=== PATIENT | male | born 1940 | race Caucasian/White ===

== ENCOUNTER 2019-09-14 12:11 | Inpatient (IN) | payer OTHER ==
[~2019-09-14] VITALS: Ht 182.9 cm; Wt 105.2 kg
[2019-09-14 12:11] VITALS: BP 160/84
[2019-09-14] MEDS ORDERED: SIMVASTATIN80 MG PO (12:29)
[2019-09-14] MEDS ORDERED: ZESTORETIC 20-1 EACH PO (12:30)
[2019-09-14] MEDS ORDERED: OMEPRAZOLE40 MG PO (12:30)
[2019-09-14] MEDS ORDERED: FENOFIBRATE160 MG PO (12:31)
[2019-09-14] MEDS ORDERED: METFORMIN HCL500 M3 PO (12:31)
[2019-09-14] MEDS ORDERED: ONE-A-DAY WOMENS PO (12:32)
[2019-09-14] MEDS ORDERED: ASA81BEC PO (12:32)
[2019-09-14 12:41] LABS: BASOPHILS 0.8 % (0.0-2.0); HEMATOCRIT 41.1 % (42.0-52.0); HEMOGLOBIN 13.8 gm/dL (14.0-18.0); LYMPHOCYTES 26.4 % (24.0-44.0); MCH 30.1 pg (26.0-34.0); MCHC 33.6 g/dL (28.0-37.0); MCV 89.7 fL (80.0-100.0); PLATELET COUNT 215 thou/uL (150-400); POLYS 49.8 % (36.0-66.0); RBC 4.58 mil/uL (4.50-6.00)
[2019-09-14 12:51] LABS: ANION GAP 9 mmol/L (7-16); BUN 23 mg/dL (7-18); CALCIUM 9.4 mg/dL (8.5-10.1); CHLORIDE 99 mmol/L (98-107); CO2 26 mmol/L (21-32); CREATININE 1.3 mg/dL (0.7-1.3); GLUCOSE 122 mg/dL (74-106); POTASSIUM 4.1 mmol/L (3.5-5.1); SODIUM 134 mmol/L (136-145)
[2019-09-14 13:00] LABS: SGOT 34 U/L (15-37); SGPT 26 U/L (30-65); TOTAL BILIRUBIN 0.4 mg/dL (<0.1-1.0); TOTAL PROTEIN 8.2 g/dL (6.4-8.2); TROPONIN-I <0.06 ng/mL (<0.06)
[2019-09-14 14:49] VITALS: BP 147/59
[2019-09-14 16:04] VITALS: BP 144/70
[2019-09-14 20:22] VITALS: BP 156/66
--- NOTE | 2019-09-14 20:36 | NUR ---
pt admitted from ER for SOB , pt is A&OX3, PT'S VS are stable, pt has done iv ABX at ER, lasix 40mg iv giving, pt is on o2 2L/MIN/NC to keep o2sat at 92-95% pt has SOB with activities. pt's family stay at pt's bedside.
[2019-09-14 23:05] LABS: GLYCOHEMOGLOBIN (HGB A1C) 6.7 % (4.8-5.6)
[2019-09-14 23:18] VITALS: BP 136/78
[2019-09-15 04:08] VITALS: BP 163/77
[2019-09-15 06:04] LABS: HEMATOCRIT 41.5 % (42.0-52.0); HEMOGLOBIN 13.7 gm/dL (14.0-18.0); MCV 90.9 fL (80.0-100.0); RBC 4.56 mil/uL (4.50-6.00); RDW 14.2 % (10.5-14.5); WBC 7.8 thou/uL (4.0-11.0)
[2019-09-15 06:19] LABS: CALCIUM 9.5 mg/dL (8.5-10.1); CREATININE 1.2 mg/dL (0.7-1.3); POTASSIUM 3.8 mmol/L (3.5-5.1)
--- NOTE | 2019-09-15 07:04 | NUR ---
SLEPT MOST OF SHIFT. DANGLES TO VOID WITHOUT PROBLEMS. DENIES COMPLAINTS OF PAIN THIS SHIFT. REMAINS WITH SHORTNESS OF AIR WITH ACTIVITY. WORKING ON GOALS AND PLAN OF CARE FOR NOC. PROGRESSING SLOWLY TOWARDS DISCHARGE GOALS. CONTINUE TO ASSES CLOSELY.
[2019-09-15 07:52] VITALS: BP 148/80
--- NOTE | 2019-09-15 11:24 | EKG ---
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
[2019-09-15 15:52] VITALS: BP 143/78
--- NOTE | 2019-09-15 18:34 | NUR ---
PATIENT ALERT AND ORIENTED X4, NO COMPLAINTS OF PAIN. ON 2L NASAL CANULA, DESATS TO 89% WHEN ON ROOM AIR. PATIENT EDUCATED ON INCREASED ACTIVITY. AMBULATED INDEPENDENTLY IN THE ROOM. PATIENT ALSO EDUCATED ON INSENTIVE SPIROMITRY AND COMPLETES EVERY HOUR. PLAN IS TO WEAN OF OXYGEN. NO SIGN OF ACUTE DISTRESS NOTED AT THIS TIME. WILL CONTINUE TO MONITOR.
[2019-09-15 19:09] VITALS: BP 132/78
[2019-09-16 05:56] VITALS: BP 125/73
[2019-09-16 05:57] LABS: CALCIUM 9.6 mg/dL (8.5-10.1); CREATININE 1.3 mg/dL (0.7-1.3); POTASSIUM 4.2 mmol/L (3.5-5.1)
--- NOTE | 2019-09-16 06:00 | NUR ---
RESTING QUIETLY TONIGHT. HE HAS BEEN GETTING UP AND DUMPING URINE IN THE TIOLET. HE GAVE ME AN ESTIMATE OF THE AMOUNT OF URINE OUT WITH EACH URINATION AND HOW MANY TIMES. CAREPLAN REVIWED.
[2019-09-16 08:25] VITALS: BP 122/57
--- NOTE | 2019-09-16 08:58 | 2DMMODE ---
[facility] [place] [address] 2 D/M-MODE ECHOCARDIOGRAM Name: BALDERASHUA Room #: 364-P ADM IN M.R.#: [id number] Admission: 09/14/19 Attend Phys: Meghna Nguyen MD Discharge: Date of : 39 Report #: [id number] THIS REPORT FOR: //name// APPROVED REPORT Study performed: 09/16/2019 09:19:45 EXAM: Comprehensive 2D, Doppler, and color-flow Echocardiogram Patient Location: Echo lab Room #: 364 Status: routine BSA: 2.30 HR: 64 bpm BP: 125/73 mmHg Rhythm: NSR Other Information Study Quality: Adequate Indications Dyspnea Hx: CAD, stent, HTN. 2D Dimensions RVDd: 43.56 mm IVSd: 13.20 (7-11mm) LVOT Diam: 23.16 (18-24mm) LVDd: 46.76 mm PWd: 8.99 (7-11mm) Ascending Ao: 34.39 (22-36mm) LVDs: 32.00 (25-40mm) Aortic Root: 38.09 mm Volumes Left Atrial Volume (Systole) Single Plane 4CH: 46.64 mL Single Plane 2CH: 43.85 mL LA ESV Index: 21.00 mL/m2 Aortic Valve AoV Peak Arthur.: 1.15 m/s AO Peak Gr.: 5.32 mmHg LVOT Max P.95 mmHg LVOT Max V: 0.99 m/s YU Vmax: 3.63 cm2 Mitral Valve E/A Ratio: 0.8 MV Decel. Time: 434.00 ms [facility] [address] [address] 2 D/M-MODE ECHOCARDIOGRAM Name: HUA BALDERAS Room #: 364-P [facility]#: [id number] Admission: 09/14/19 Attend Phys: Meghna Nguyen MD Discharge: Date of : 39 Report #: [id number] MV E Max Arthur.: 0.50 m/s MV A Arthur.: 0.65 m/s MV PHT: 125.86 ms IVRT: 101.50 ms Pulmonary Valve PV Peak Arthur.: 0.88 m/s PV Peak Gr.: 3.07 mmHg Pulmonary Vein P Vein S: 0.44 m/s P Vein A: 0.29 m/s P Vein D: 0.43 m/s P Vein A Dur.: 115.3 msec P Vein S/D Ratio: 1.02 Tricuspid Valve TR Peak Arthur.: 2.70 m/s RAP Estimate: 5.00 mmHg TR Peak Gr.: 29.00 mmHg PA Pressure: 34.00 mmHg Left Ventricle The left ventricle is normal size. There is normal LV segmental wall motion. There is normal left ventricular wall thickness. The left ventricular systolic function is normal. The left ventricular ejection fraction is within the normal range. LVEF is 60%. Mild diastolic dysfunction is present (impaired relaxation pattern). Right Ventricle The right ventricle is normal size. The right ventricular systolic function is normal. Atria The left atrium size is normal. The right atrium size is normal. Aortic Valve The aortic valve is minimally calcified. No aortic regurgitation is present. There is no aortic valvular stenosis. Mitral Valve The mitral valve is normal in structure. Mild mitral regurgitation. Eccentric jet. Tricuspid Valve The tricuspid valve is normal in structure. Trace tricuspid regurgitation. Estimated PAP is 35mmHg. [facility] [address] [place] [address] 2 D/M-MODE ECHOCARDIOGRAM Name: HUA BALDERAS Room #: 364-P [facility] IN M.R.#: [id number] Admission: 09/14/19 Attend Phys: Meghna Nguyen MD Discharge: Date of : 38 Report #: [id number] Pulmonic Valve The pulmonary valve is normal in structure. Trace pulmonic regurgitation. Great Vessels The aortic root measures at the upper limits of normal. The ascending aorta is normal in size. IVC is normal in size and collapses >50% with inspiration. Pericardium There is no pericardial effusion. <Conclusion> Left ventricular systolic function is normal. There is normal LV segmental wall motion. EF 60% Mild diastolic dysfunction The aortic valve is minimally calcified. No aortic regurgitation or stenosis. The mitral valve is normal in structure. Mild mitral regurgitation. Eccentric jet. Trace tricuspid regurgitation. Estimated pulmonary artery pressure of 35mmHg. There is no pericardial effusion. <ELECTRONICALLY SIGNED> By: Danis Valadez MD, FACC 09/16/19857 7 7 Danis Valadez MD, FACC /INF
--- NOTE | 2019-09-16 14:51 | NUR ---
DISCHARGE PLANNING. PATIENT DISCHARGING TO HOME. PATIENT WILL NEED OXYGEN SET UP FOR HOME USE. PATIENT REFERRAL FAXED TO [facility] PER REQUEST. CALL PLACED TO [facility] TO NOTIFY OF REFERRAL AND PATIENTS OXYGEN NEEDS. [facility] TO FACILITATE AND WILL DELIVER PORTABLE TANK TO PATIENT BESIDE PRIOR TO DISCHARGE. UNIT SW NOTIFIED.
--- NOTE | 2019-09-16 15:55 | NUR ---
Assumed care approx. 0700 this AM. No acute changes, no distress. Patient hopeful for discharge orders today. Oxygen with activity test completed with RT. Pt will be going home with O2. Dr. Burton decided to keep patient one more night. Lasix order changed to 40 mg IV. O2 tank has arrived to patient room to go home home with patient at discharge. Patient progressing toward plan of care goals.
--- NOTE | 2019-09-16 16:28 | NUR ---
INITIAL ASSESSMENT: SW REVIEWED CHART AND SPOKE WITH NURSING AND ATTENDING PHYSICIAN. PT WAS ADMITTED FROM HOME DUE TO PNEUMONIA. PT ON CONTINUOUS O2 AND WILL NEED AT TIME OF DISCHARGE. PT WILL DISCHARGE HOME TOMORROW. SW MET WITH PT AND FAMILY AT BEDSIDE. INTRODUCED ROLE OF SW. PT IS ALERT/ORIENTATED X 4. PRIOR TO ADMISSION, PT WAS INDEPENDENT WITH ADLS. NO USE OF DME. NO HX OF HH SERVICES OR POST-ACUTE PLACEMENT. PT VERBALIZED UNDERSTANDING OF NEED FOR HOME O2. PT NEEDS 2L AT REST AND 4L WITH ACTIVITY. PT'S PCP IS DR. WINSOME SHANKS. SW2 DISCUSSED OPTIONS FOR DME PROVIDERS. NO PREFERENCE VOICED. SW CONFIRMED PT'S HOME ADDRESS AND PHONE NUMBER. COOK NIGHT SENT INFO TO [facility]. [facility] DELIVERED PORTABLE TANK TO BEDSIDE AND CAN PROVIDE CARE. CONTACT INTO FOR [facility] PLACED IN PT'S DISCHARGE SUMMARY. SW UPDATED PT'S NURSE AND ATTENDING PHYSICIAN. SW IS FOLLOWING TO ASSIST NEEDED WITH DISCHARGE PLANNING.
[2019-09-16 16:31] VITALS: BP 122/57
[2019-09-16 17:50] VITALS: BP 110/54
[2019-09-16 20:45] VITALS: BP 121/59
--- NOTE | 2019-09-17 04:21 | NUR ---
resting quietly tonight. denies pain. he is expecting to go home tomorrow. he is wanting to know if it is permissable to drink a small amount of coffee each day on the heart healthy diet.
[2019-09-17 04:49] VITALS: BP 131/64
[2019-09-17 08:06] VITALS: BP 108/67
[2019-09-17] MEDS ORDERED: LASIX 40 MG TAB40 MG PO (08:24)
[2019-09-17] MEDS ORDERED: LISINOPRIL20 MG PO (08:24)
[2019-09-17] MEDS ORDERED: AZITHROMYCIN500 MG PO (08:24)
[2019-09-17 09:23] VITALS: BP 108/67
--- NOTE | 2019-09-17 13:06 | NUR ---
DISCHARGE NOTE: PAUL reviewed chart and spoke with nursing and attending physician. Pt is medically stable for discharge home today. Orders written for home O2 and HH. PAUL met with pt and family at bedside to discuss discharge. Portable O2 tank at bedside, which was delivered by [facility] liaison yesterday afternoon. PAUL provided options for HH agencies. No preference voiced. PAUL confirmed pt's home address and phone number. Pt's PCP is Dr. Clarissa Li. PAUL [facility] not in-network with pt's insurance. PAUL faxed referral to [facility] and notified [facility] liaison of new referral. Contact info for [facility] placed in pt's discharge summary. PAUL is following to finalize discharge.
== END 2019-09-17 11:37 | disposition home health service (06) | DRG 193 ==
LOC: ER 12:11 → 3W 13:54 → EROBS 13:54 → 3W 15:50 → ENTRNSPT 09-17 10:48 → EDTRNSPTSTS 09-17 11:10 → 3W 09-17 11:37
PROVIDERS: Nurse Practitioner Family; ADMIT Internal Medicine
DX: J18.9 Pneumonia, unspecified organism (principal); J96.91 Respiratory failure, unspecified with hypoxia; I50.30 Unspecified diastolic (congestive) heart failure; I25.10 Atherosclerotic heart disease of native coronary artery without angina pectoris; E78.5 Hyperlipidemia, unspecified; E11.9 Type 2 diabetes mellitus without complications; I11.0 Hypertensive heart disease with heart failure; K21.9 Gastro-esophageal reflux disease without esophagitis; Z60.2 Problems related to living alone; Z95.5 Presence of coronary angioplasty implant and graft; Z79.899 Other long term (current) drug therapy; Z79.82 Long term (current) use of aspirin; Z79.84 Long term (current) use of oral hypoglycemic drugs; Z87.891 Personal history of nicotine dependence
CPT/HCPCS: 10879

== ENCOUNTER → 2019-10-09 | Outpatient (CLI) | payer OTHER ==
[~2019-10-09] MED LIST: ASA81BEC PO; AZITHROMYCIN500 MG PO; FENOFIBRATE160 MG PO; LASIX 40 MG TAB40 MG PO; LISINOPRIL20 MG PO; METFORMIN HCL500 M3 PO; OMEPRAZOLE40 MG PO; ONE-A-DAY WOMENS PO; SIMVASTATIN80 MG PO; ZESTORETIC 20-1 EACH PO
== END ==
LOC: RAD 10:55
DX: J84.10 Pulmonary fibrosis, unspecified (principal); J18.9 Pneumonia, unspecified organism; J98.4 Other disorders of lung; M47.814 Spondylosis without myelopathy or radiculopathy, thoracic region

== ENCOUNTER 2019-11-09 08:24 | Inpatient (IN) | payer OTHER ==
[~2019-11-09] VITALS: Ht 182.9 cm; Wt 109.3 kg
[2019-11-09 08:24] VITALS: BP 115/52
[2019-11-09] MEDS ORDERED: FAMOTIDINE 40 M40 M1 PO (08:50)
[2019-11-09] MEDS ORDERED: FLOVENT HFA 4444 MCG INH (08:53)
[2019-11-09 09:03] LABS: ABSOLUTE NEUTROPHILS 4.8 thou/uL (1.4-8.2); BASOPHILS 1.2 % (0.0-2.0); HEMATOCRIT 38.3 % (42.0-52.0); HEMOGLOBIN 12.8 gm/dL (14.0-18.0); LYMPHOCYTES 17.5 % (24.0-44.0); MCHC 33.4 g/dL (28.0-37.0); MCV 89.8 fL (80.0-100.0); MONOCYTES 9.6 % (1.0-8.0); PLATELET COUNT 142 thou/uL (150-400); POLYS 54.7 % (36.0-66.0); RBC 4.26 mil/uL (4.50-6.00); RDW 13.8 % (10.5-14.5); WBC 8.8 thou/uL (4.0-11.0)
[2019-11-09 09:07] LABS: ANION GAP 10 mmol/L (7-16); BUN 21 mg/dL (7-18); CALCIUM 9.4 mg/dL (8.5-10.1); CHLORIDE 100 mmol/L (98-107); CO2 26 mmol/L (21-32); CREATININE 1.4 mg/dL (0.7-1.3); GLUCOSE 147 mg/dL (74-106); POTASSIUM 3.9 mmol/L (3.5-5.1); SODIUM 136 mmol/L (136-145)
[2019-11-09 09:16] LABS: TROPONIN-I <0.06 ng/mL (<0.06)
[2019-11-09 10:50] VITALS: BP 149/76
[2019-11-09 11:43] VITALS: BP 159/71
--- NOTE | 2019-11-09 12:47 | NUR ---
ASSUMED CARE OF PT APPROX 1200. PT A&OX4, VSS, DENIES PAIN. PT HAS SOA WITH EXERTION, ON 4L OXYGEN, HOB RAISED. FALL PRECAUTIONS IN PLACE. NO SIGNS OF DISTRESS. WILL CONTINUE TO MONITOR.
[2019-11-09 14:12] VITALS: BP 150/52
[2019-11-09 15:00] VITALS: BP 157/83
[2019-11-09 20:00] VITALS: BP 147/68
--- NOTE | 2019-11-10 05:11 | NUR ---
PROGRESS PT PROGRESSING SLOWLY ON 6 LITERS O2 VIA NC. PT REPORTS SOB WITH EXERTION IS STILL OCCURING BUT NOT SEVERE WHEN HE CAME IN. IV STEROIDS CONTINUE, PT REPORTS BEING ABLE TO BRING UP MORE SPUTUM NOT OBSERVED BY THIS NURSE. LUNG SOUNDS DIMINISHED IN ALL [place], O2 SAT AT 92 TO 95 ON THE 6 LITERS TO TITRATE BACK TO 4 LITERS TOLERATED.
[2019-11-10 08:21] VITALS: BP 140/81
[2019-11-10 12:09] LABS: CALCIUM 9.4 mg/dL (8.5-10.1); CREATININE 1.1 mg/dL (0.7-1.3); POTASSIUM 3.9 mmol/L (3.5-5.1)
[2019-11-10 14:58] VITALS: BP 149/72
--- NOTE | 2019-11-10 16:16 | EKG ---
[address] [place] [address] ELECTROCARDIOGRAM REPORT Name: HUA BALDERAS Room #: 454-P ADM IN M.R.#: [id number] Admission: 11/09/19 Attend Phys: Jamal Delgado Discharge: Date of : 38 Report #: [id number] THIS REPORT FOR: //name// 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
[2019-11-10 19:09] VITALS: BP 135/73
--- NOTE | 2019-11-10 19:28 | NUR ---
ASSUMED CARE AROUND 0715. AXOX4. CALLED APPROPRIATELY FOR ASSISTANCE. NO S/S ACUTE DISTRESS NOTED OR REPORTED AT THIS TIME. CARE TRASFERRED TO INCOMING RN AT THIS TIME.
--- NOTE | 2019-11-11 08:16 | NUR ---
progress pt a/o x4 up ad tone on 7 liters o2 not so sob with activity but still requiring 7 liters normally wears 4 at home. rt tx's initiated. furesomide initiated pt voiding large amount. lung sounds improving left lower lobe with some rhonchi noted but other lobes remain diminished. continue to monitor titrate o2 as tolerated.
[2019-11-11 08:27] VITALS: BP 157/84
--- NOTE | 2019-11-11 12:22 | NUR ---
PT ADMITTED RELATED TO COPD EXACERBATION/DIASTOLIC CHF/HYPOXIA. CM REVIEWED CHART AND SPOKE WITH CARE TEAM. CM MET WITH PT AT BEDSIDE THIS DAY. PT IS A&O X4. CM ROLE INTRODCUED. PT INDICATED HE LIVES IN A HOUSE ALONE WITH 1 STEP TO ENTER AND NO STEPS INSIDE. PT INDICATED HE HAD USED A CANE TO ASSIST WITH MOBILITY CONTROLLED ATMOSPHERIC FURNACE BRAZER. PT INDICATED HE HAS A 4WW IF NEEDED WELL. PT HAS HOME O2 THROUGH [facility] AND HAD BEEN WEARING 4L O2 CONTROLLED ATMOSPHERIC FURNACE BRAZER. PT INDICATED HE HAD [facility] IN THE PAST AND WOULD BE AGREEABLE WITH USING THEM AGAIN IF NEEDED UPON DC. CM TO FOLLOW INDICATED WITH DC PLANNING.
--- NOTE | 2019-11-11 13:25 | NUR ---
PT A&OX4, VSS, DENIES PAIN. PATIENT HAS NON PRODUCTIVE COUGH, WHEEZING HEARD IN UPPER LOBES, PATIENT REMAINS ON 10L OXYGEN. NO SIGNS OF DISTRESS. WILL CONTINUE TO MONITOR.
[2019-11-11 15:21] VITALS: BP 146/70
[2019-11-11 19:16] VITALS: BP 149/82
[2019-11-12 04:23] VITALS: BP 154/88
[2019-11-12 07:50] VITALS: BP 113/98
--- NOTE | 2019-11-12 08:05 | NUR ---
PROGRESS PT VSS LUNGS SOUNDS REMAIN DIMINISHED PT STILL VOIDING LARGE AMOUNTS. ON 10 LITERS O2 VIA NC PT STATES SOB WITH EXERTION IS MINIMAL WITH THAT HIGH LEVEL OF OXYGEN. CEFEPINE STARTED LAST NIGHT. MORE DIAGNOSTICS SCHEDULED FOR TODAY TO FIND THE CAUSE OF THE INCRESING NEEDS FOR MORE OXYGEN. RT TX'S CONTINUE.
--- NOTE | 2019-11-12 10:05 | NUR ---
DISCHARGE PLANNING. POSSIBLE DISCHARGE TODAY. HOME HEALTH RECOMMENDED. PATIENT REFERRAL FAXED TO [facility] PER REQEUST. CALL PLACED TO [facility] TO NOTIFY. AWAITING RESPONSE. FOLLOWING.
--- NOTE | 2019-11-12 11:28 | 2DMMODE ---
[facility] [address] [place] [address] 2 D/M-MODE ECHOCARDIOGRAM Name: HUA BALDERAS Room #: 454-P ADM IN .R.#: [id number] Admission: 11/09/19 Attend Phys: Jamal Lynn Discharge: Date of : 38 Report #: [id number] THIS REPORT FOR: //name// APPROVED REPORT Study performed: 11/12/2019 09:47:20 EXAM: Limited 2D, Doppler, and color-flow Echocardiogram Patient Location: Bedside Room #: 454 Status: routine BSA: 2.31 HR: 84 bpm BP: 154/88 mmHg Rhythm: NSR Other Information Study Quality: Adequate Indications COPD Hypertension/HDD Pulmonary infiltrate Complete echo on 09/16/19 2D Dimensions RVDd: 40.72 mm IVSd: 12.87 (7-11mm) LVOT Diam: 22.59 (18-24mm) LVDd: 39.49 mm PWd: 12.87 (7-11mm) Ascending Ao: 30.50 (22-36mm) LVDs: 25.87 (25-40mm) Aortic Root: 33.03 mm IVC: 13.00 mm Volumes Left Atrial Volume (Systole) Single Plane 4CH: 59.05 mL Single Plane 2CH: 38.92 mL LA ESV Index: 23.00 mL/m2 Aortic Valve AoV Peak Arthur.: 1.12 m/s AO Peak Gr.: 5.02 mmHg LVOT Max P.75 mmHg LVOT Max V: 0.97 m/s YU Vmax: 3.46 cm2 Mitral Valve E/A Ratio: 0.8 [facility] [address] [place] [address] 2 D/M-MODE ECHOCARDIOGRAM Name: HUA BALDERAS Room #: 454-P [facility] IN [facility].#: [id number] Admission: 11/09/19 Attend Phys: Jamal Lynn Discharge: Date of : 38 Report #: [id number] MV Decel. Time: 201.40 ms MV E Max Arthur.: 0.74 m/s MV A Arthur.: 0.91 m/s MV PHT: 58.41 ms Pulmonary Valve PV Peak Arthur.: 1.21 m/s PV Peak Gr.: 5.88 mmHg Tricuspid Valve TR Peak Arthur.: 3.43 m/s RAP Estimate: 5.00 mmHg TR Peak Gr.: 47.00 mmHg PA Pressure: 52.00 mmHg Left Ventricle The left ventricle is normal size. There is normal LV segmental wall motion. Mild concentric left ventricular hypertrophy. The left ventricular systolic function is normal. The left ventricular ejection fraction is within the normal range. LVEF is 65%. Mild diastolic dysfunction is present (impaired relaxation pattern). Right Ventricle The right ventricle is normal size. The right ventricular systolic function is normal. Atria The left atrium size is normal. Right atrium is at the upper limits of normal. Aortic Valve Aortic valve is mildly calcified. No aortic regurgitation is present. There is no aortic valvular stenosis. Mitral Valve The mitral valve is normal in structure. Mild mitral regurgitation No evidence of mitral valve stenosis. Tricuspid Valve The tricuspid valve is normal in structure. Trace tricuspid regurgitation. PAP is estimated at 50 mmHg. Pulmonic Valve The pulmonary valve is normal in structure. There is no pulmonic valvular regurgitation. Great Vessels [facility] [place] [address] 2 D/M-MODE ECHOCARDIOGRAM Name: HUA BALDERAS Room #: 454-P [facility] IN M.R.#: [id number] Admission: 11/09/19 Attend Phys: Jamal Lynn Discharge: Date of : 38 Report #: [id number] The aortic root is normal in size. IVC is normal in size and collapses >50% with inspiration. Pericardium There is no pericardial effusion. <Conclusion> Abbreviated study The left ventricular systolic function is normal. EF 65% The left ventricular ejection fraction is within the normal range. The left ventricular systolic function is normal. There is normal LV segmental wall motion. Aortic valve is mildly calcified. No aortic regurgitation or stenosis. The mitral valve is normal in structure. Mild mitral regurgitation Trace tricuspid regurgitation. Pulmonary artery pressure estimated at 50 mmHg. There is no pericardial effusion. <ELECTRONICALLY SIGNED> By: Danis Valadez MD, FACC 12/31/19 1128 1128 1128 Danis Valadez MD, [facility] /INF
[2019-11-12 13:45] VITALS: BP 137/79
--- NOTE | 2019-11-12 13:48 | NUR ---
PT IS PROGRESSING SLOWLY PT NEEDING 9L O2 AND USED 4L PATIENT CARE MANAGER. REFERRAL HAS BEEN SENT TO [facility] AND THEY CAN ACCEPT FOR SERVICES UPON DC. CARE TEAM INDICATED POSSIBLE DC MONDAY. CM TO FOLLOW INDICATED WITH DC PLANNING.
--- NOTE | 2019-11-12 17:21 | NUR ---
Assumed pt care at 7am.Assessment completed.Pt on 9liter most of the times this shift and well tolerated.Pt in and out of bed to bathroom with sba. Pt has good appetite.Dr Agee here, order noted.Pt maintain oxygenation and no c/o soa noted.Will continue to monitor.
[2019-11-12 19:27] VITALS: BP 155/79
[2019-11-13 06:21] LABS: HEMATOCRIT 39.3 % (42.0-52.0); HEMOGLOBIN 12.8 gm/dL (14.0-18.0); MCH 29.8 pg (26.0-34.0); MCHC 32.6 g/dL (28.0-37.0); MCV 91.5 fL (80.0-100.0); RBC 4.29 mil/uL (4.50-6.00); RDW 14.3 % (10.5-14.5); WBC 10.9 thou/uL (4.0-11.0)
[2019-11-13 08:00] VITALS: BP 150/86
--- NOTE | 2019-11-13 08:52 | NUR ---
progress pt not progressing oxygen needs continue to be difficult, on 9 liters at start of shift sats at 92 but sats down to 88% this am . pt voiding qs, accuchecks and ssi continue on nectar thick liquids tolerating well coughed after one drink but fine after. rt tx's and abt's to continue discharge
[2019-11-13 15:00] VITALS: BP 145/74
[2019-11-13 19:19] VITALS: BP 146/75
--- NOTE | 2019-11-13 21:00 | NUR ---
PATIENT ALERT AND ORIENTED AND COOPERATIVE AND PLEASANT WITH FAMILY THROUGHOUT THE DAY AT BEDSIDE. PATIENT WOULD LIKE TO DISCHARGE BY MONDAY. PATIENT ENJOYS COFFEE WITH THICKENER AND THICKENED OJ.
--- NOTE | 2019-11-14 02:40 | NUR ---
PATIENT ASSESSED AND IS ALERT X 4. SKIN WARM AND DRY. LUNGS COURSE AND WHEEZY. TAKES NECTAR THICKEN FLUIDS WELL. UP WITH ASSISTANCE TO BATRHROOM BUT IS STEADY GAIT. 1+EDEMA NOTED TO LOWER EXTREMITIES. 02 AT 8LNC. 02 SAT 92-94%. HAS A BEDSIDE MONITOR. LEFT FA IV FLUSHES WELL. LAYS ON SIDE AND HER DESAT TO 88% TURNS AND HIS 02 SAT GOES BACK UP. HAS NO SKIN ISSUES. CONT ANTIBIOTIC AND STEROIDS WELL. BS CHECKS RECEIVED EXTRA INSULIN BECAUSE OF HIS BS. CONT PLAN OF CARE.
[2019-11-14 07:49] VITALS: BP 139/79
[2019-11-14 10:08] LABS: ANA INTERPRETATION Negative (Negative)
--- NOTE | 2019-11-14 12:55 | NUR ---
PT WAS PUT ON NECTAR THICK LIQUIDS AND IS STILL ON 8L OF O2. CARE TEAM INDICATED THAT HE ANTICIPATES PT BEING HERE OVER THE WEEKEND. CM TO FOLLOW INDICATED WITH DC PLANNING.
--- NOTE | 2019-11-14 16:18 | NUR ---
PT A&OX4. IV INTACT IN L FA. 02@ 6.5 L PER NC. AMBULATES WITH STAND BY ASSIST X 1. O2 SAT MONITOR IN PLACE PT DESATS TO UPPER 70'S AFTER WALKING 20-25 FT. PT HAS BEEN TRANSFERED TO 405 SS AT THIS TIME.
--- NOTE | 2019-11-14 17:40 | NUR ---
PT ARRIVED ON UNIT, VSS, NO C/O PAIN. PT ON 6 LITERS O2 SAT 94%. PT AOX4, DRINKING NECTAR THICK LIQUIDS. CALL LIGHT IN REACH/PERSONAL ITEMS. WILL CONTINUE TO MONITOR PT.
[2019-11-14 20:48] VITALS: BP 134/74
--- NOTE | 2019-11-15 02:48 | NUR ---
ASSUMED CARE OF PATIENT AT APPROX. 1999. ASSESSMENT CHARTED. MEDICATIONS ADMINISTERED PER JAN. PATIENT IS A&OX4, VSS, 02 SATS IN MID 90'S ON 6L OF O2. PATIENT HAS BEEN USING A URNINAL TO VOID. DESATS TO UPPER 80'S WHEN TRANSFERRING/SHIFTING POSITIONS. PATIENT DENIES PAIN. PATIENT IS TAKING NECTAR THICKENED LIQUIDS WITH NO ISSUES OR SIGNS OF ASPIRIATION. PATIENTS RR IS 18 WITH NO DYSPNEA. LUNG SOUNDS ARE CTA AND EDEMA NOT PRESENT ON EXTREMITIES. IV PATENT W BLOOD RETURN ON L FOREARM; RECIEVING ANTIBIOTIC THX PER ORDER. PER CM NOTE, PATIENT ANTICIPATED TO STAY OVER WEEKEND THEN TO TRANSFER HOME W HOMEHEALTH. CONTINUOUS O2 SAT MONITORING ON. FALL PRECAUTIONS IN PLACE. PATIENT CALLS OUT FOR HELP IF NEEDED. VOICES NO OTHER NEEDS AT THIS TIME. WILL CONTINUE TO MONITOR AND FOLLOW PLAN OF CARE.
[2019-11-15 05:16] LABS: CALCIUM 9.5 mg/dL (8.5-10.1); CREATININE 1.3 mg/dL (0.7-1.3); POTASSIUM 4.9 mmol/L (3.5-5.1)
[2019-11-15 07:25] VITALS: BP 143/72
--- NOTE | 2019-11-15 10:31 | NUR ---
SW reviewed chart and spoke with nursing and attending physician. [facility] and is slowly progressing towards goals for discharge. No weekend discharge planned. Pt will discharge home with [facility] on Monday. PAUL is following to assist as needed with discharge planning.
--- NOTE | 2019-11-15 13:52 | NUR ---
Assumed pt care at 7am.Pt up adlib in the room to bathroom.Assessment completed.vss,pt in bed for all meals.Good appetite.Pt tolerated meds with apple sauce.Pt o2 sat at rest was in the upper 90's but desat with exercise or ambulation.Pt in bed resting at present after walking in hallways with therapist.Will continue to monitor.
--- NOTE | 2019-11-15 14:59 | NUR ---
Assess due to length of stay. Admit with CHF, COPD, and pneumonia. ST has assessed and recommended modified diet for mild/moderate dysphagia. Eating 100% of meals. Wts are up about 9 lb from September-on lasix. Last A1C 6.7 in 09/2019. BG now 273-289 likely aggravated with steroids. Low nutrition risk but will also add carb control diet to order.
[2019-11-15 15:59] VITALS: BP 143/72
[2019-11-15 20:30] VITALS: BP 154/85
--- NOTE | 2019-11-16 03:35 | NUR ---
ASSUMED CARE OF PATIENT AT APPROX. 1999. ASSESSMENT CHARTED. MEDICATIONS GIVEN PER JAN. PATIENT IS A&OX4, VSS, DENIES PAIN. O2 SATS ARE 93% ON 5L OF O2. PATIENT HAD SWALLOW STUDY DONE TODAY SHOWING SOME FLASH PENETRATION; PATIENT IS CONTINUING NECTAR THICK LIQUIDS AND TOLERATING WELL. PATIENTS RR IS 20 BUT GOES UP WITH ACTIVITY OR AMBULATION. HE BREATHES THROUGH HIS NOSE AND OUT THROUGH HIS MOUTH USING PURSE LIP BREATHING. HE CONTINUES TO DESAT TO LOWER 80'S WITH ACTIVITY. HE DESATED TO 77% AFTER AMBULATING TO AND USIN THE TOILET BUT O2 SATS IMPROVED WHEN PERFORMING PURSED LIP BREATHING. LUNGS REMAIN CLEAR TO DIMINISHED WITH NO CRACKLES OR EVIDENCE OF FLUID BUILDUP HEARD. EDEMA IS NOT NOTED ON EXTREMITIES. PATIENT WILL CALL FOR STANDBY ASSISTANCE/SUPERVISION WHEN AMBULATING BUT DOES WELL WITH MOBILITY. PATIENT IS NOW RESTING COMFORTABLY IN BED AND ON 4L OF O2. SATS ARE 92-95% WHILE ASLEEP. PATIENT VOICED NO OTHER NEEDS OR CONCERNS. FALL PRECAUTIONS ARE IN PLACE. PLAN IS TO POSSIBLY SEND PATIENT BACK HOME WITH ONCE O2 SATS ARE BACK TO BASLINE OF 3-4L. WILL CONTINUE TO MONITOR AND FOLLOW PLAN OF CARE
--- NOTE | 2019-11-16 05:23 | NUR ---
THIS NURSE AGREES WITH ASSESSMENT AND NOTES BY BAND CUTTING MACHINE OPERATOR ON THIS PATIENT.
[2019-11-16 07:10] VITALS: BP 134/74
[2019-11-16 13:15] VITALS: BP 141/73
[2019-11-16 14:46] VITALS: BP 141/73
--- NOTE | 2019-11-16 15:43 | NUR ---
ASSUMED CARE AT 0700. VSS, NO C/O PAIN, TOLERATING NECTAR THICKEN LIQUIDS. PT TAKES MEDS WHOLE IN APPLESAUCE. PT CALLS APPROP., CALL LIGHT/PERSONAL ITEMS IN REACH. AOX4, CURRENTLY ON 3L O2. LEFT FOREARM IV SALINE LOCKED. BS ARE MONITORED AND INSULIN WAS GIVEN PER S/S DUE TO STEROID THERAPY. WILL CONTINUE TO MONITOR PT.
[2019-11-16 19:45] VITALS: BP 121/48
--- NOTE | 2019-11-17 03:31 | NUR ---
PATIENT ALERT AND ORIENTED X4. UP ADLIB IN ROOM WITH ENOUGH LINE ON 02NC AT 4L TO GET TO THE BATHROOM. CONTINUOUS 02SAT MONITORED. BS MONITORED PER ORDER. IVABX INFUSED W/O COMPLICATION. PATIENT PLEASANT AND COOPERATIVE. DENIES PAIN. RESTING QUIETLY. WILL MONITOR.
[2019-11-17 07:13] VITALS: BP 143/90
[2019-11-17 15:07] VITALS: BP 121/49
--- NOTE | 2019-11-17 15:57 | NUR ---
A/O, calm and cooperative; cough with thick sputum; afebrile; patient claimed he wanted to be DNR. The family member reported of concern of mold in the patient's house. Patient's O2 Sat dropped to around 84% with 3 L, stayed around 90% ([employer]) at 5L. patient is lying in bed, with eyes closed and chest up and down. will keep monitoring.
--- NOTE | 2019-11-18 06:35 | NUR ---
PATIENT ALERT AND ORIENTED X4. UP ADLIB TO BATHROOM WITH [address] SOME SOA WITH EXERTION. COOPERATIVE WITH CARE. BS MONITORED PER ORDER. NO C/O PAIN. UP IN CHAIR AT TIMES. RESTING QUIETLY.
[2019-11-18 07:28] VITALS: BP 124/61
--- NOTE | 2019-11-18 10:42 | NUR ---
SW reviewed chart and spoke with nursing. Pt is progressing towards goals for discharge. PAUL met with pt, granddtr and grandson at bedside to discuss discharge plan. Progress note from yesterday stated that pt may need SNF placement. SW discussed discharge plan with pt and family. Pt is adamant about going home with HH. Pt is not agreeable with placement at this time. Plan is for pt to discharge home with [facility]. Family to provide transportation home. SW is following to finalize discharge.
[2019-11-18] MEDS ORDERED: REGLAN 10 MG TA10 MG PO ×2 (12:41→15:29)
[2019-11-18] MEDS ORDERED: FLOMAX0.4 MG PO ×2 (12:41→15:29)
[2019-11-18] MEDS ORDERED: LASIX 40 MG TAB40 M1 PO ×2 (12:41→15:29)
[2019-11-18] MEDS ORDERED: AUGMENTIN 875-1 EACH PO ×2 (12:41→15:30)
[2019-11-18] MEDS ORDERED: PREDNISONE 20 M20 M1 PO ×2 (12:41→15:29)
[2019-11-18] MEDS ORDERED: AMBIEN 5 MG TABL5 M1 PO (12:41)
[2019-11-18] MEDS ORDERED: IPRAT-ALBUT 0.5-3 ML INH ×2 (12:41→15:29)
[2019-11-18 14:21] VITALS: BP 76/43
--- NOTE | 2019-11-18 14:21 | NUR ---
DISCHARGE ORDERS COMPLETED. PATIENT DISCHARGING TO HOME WITH [facility]. DISCHARGE/HH ORDERS AND DISCHARGE SUMMARY FAXED TO [facility]TA[facility]IAISON. CALL PLACED TO TRISHA TO NOTIFY. TRISHA TO FACILITATE. FOLLOWING.
[2019-11-18 17:20] VITALS: BP 95/50
[2019-11-18] MEDS ORDERED: BENAZEPRIL HCL20 MG PO (17:20)
[2019-11-18 17:31] VITALS: BP 132/62
--- NOTE | 2019-11-18 20:12 | NUR ---
ASSUMED CARE OF PATIENT AT 0715, PATIENT ALERT AND ORIENTED X 4. PATIENT UP WITH SBA WITH CANE, O2 AT 4 LITERS/NC IN PLACE, CONT. PULSE OX IN PLACE. PATIENT DENIES PAIN THIS SHIFT. SWALLOW PRECATIONS IN PLACE, 1 PILL AT A TIME, NECTAR THICK LIQUIDS. LEFT FOREARM IV IN PLACE, RECEIVED 1 IV ANTIBIOTIC THIS SHIFT. B/P LOW THIS AFTERNOON, 76/43, RECHECKED PRIOR TO DISCHARGE 95/50, THIS RN NOTIFIED DR LEBLANC, REQUESTED TO CHECK MANUELLY, 132/62 PRIOR IN DISCHARGE. THIS RN INSTRUCTED TO CHECK B/P PRIOR TO GIVEN BP MEDS, FAMILY VERBALIZE UNDERSTANDING. PATIENT DISCHARGED AT 1830 TO HOME WITH HOMEHEALTH. ALL DISCHARGE PAPERWORK AND ALL PERSONAL BELONGINGS SENT WITH THE PATIENT. FAMILY HAS BEEN AT BEDSIDE MOST OF THE DAY WAITING FOR DISCHARGE.
[2019-11-22] MEDS ORDERED: ZESTRIL10 MG PO (10:55)
[2019-11-22] MEDS ORDERED: REGLAN 10 MG TA10 MG PO (10:56)
[2019-11-22] MEDS ORDERED: TRELEGY ELLIPT1 EACH INH ×2 (10:57→14:33)
[2019-11-22] MEDS ORDERED: VENTOLIN HFA INH8 GM INH (14:32)
[2019-11-24] MEDS ORDERED: REGLAN10 MG PO (07:28)
[2019-11-24] MEDS ORDERED: GLYBURIDE 5 MG T5 M1 PO (07:28)
[2019-11-25] MEDS ORDERED: ELIQUIS5 M1 PO (08:28)
[2019-11-25] MEDS ORDERED: LIPITOR 20 MG T20 M1 PO (10:03)
[2019-11-25] MEDS ORDERED: LASIX 40 MG TAB40 M1 PO (10:03)
[2019-11-25] MEDS ORDERED: METOPROLOL SUCC50 MG PO (10:03)
[2019-11-25] MEDS ORDERED: K-DUR 20 MEQ T20 MEQ PO (10:03)
== END 2019-11-18 18:45 | disposition home health service (06) | DRG 177 ==
LOC: ER 08:24 → EROBS 10:30 → 4W 10:30 → 4N 11-14 15:45
PROVIDERS: Emergency Medicine; Internal Medicine; ADMIT Hospitalist
DX: J69.0 Pneumonitis due to inhalation of food and vomit (principal); J96.21 Acute and chronic respiratory failure with hypoxia; N17.0 Acute kidney failure with tubular necrosis; I50.33 Acute on chronic diastolic (congestive) heart failure; J44.1 Chronic obstructive pulmonary disease with (acute) exacerbation; J44.0 Chronic obstructive pulmonary disease with (acute) lower respiratory infection; I11.0 Hypertensive heart disease with heart failure; J20.9 Acute bronchitis, unspecified; E78.5 Hyperlipidemia, unspecified; J84.10 Pulmonary fibrosis, unspecified; E11.9 Type 2 diabetes mellitus without complications; R13.10 Dysphagia, unspecified; N40.0 Benign prostatic hyperplasia without lower urinary tract symptoms; Z87.01 Personal history of pneumonia (recurrent); Z99.81 Dependence on supplemental oxygen; Z95.5 Presence of coronary angioplasty implant and graft; Z79.2 Long term (current) use of antibiotics; Z79.82 Long term (current) use of aspirin; Z79.899 Other long term (current) drug therapy; Z87.891 Personal history of nicotine dependence
CPT/HCPCS: 10047; 10790

== ENCOUNTER 2019-11-22 09:53 | Inpatient (IN) | payer OTHER ==
[~2019-11-22] VITALS: Ht 182.9 cm; Wt 106.6 kg
[~2019-11-22 09:53] MED LIST changes: +AMBIEN 5 MG TABL5 M1 PO; +AUGMENTIN 875-1 EACH PO; +BENAZEPRIL HCL20 MG PO; +FAMOTIDINE 40 M40 M1 PO; +FLOMAX0.4 MG PO; +FLOVENT HFA 4444 MCG INH; +IPRAT-ALBUT 0.5-3 ML INH; +LASIX 40 MG TAB40 M1 PO; +PREDNISONE 20 M20 M1 PO; +REGLAN 10 MG TA10 MG PO
[2019-11-22 09:54] VITALS: BP 90/46
[2019-11-22 10:20] LABS: MCHC 33.2 g/dL (28.0-37.0); MCV 90.4 fL (80.0-100.0); PLATELET COUNT 362 thou/uL (150-400); RBC 4.31 mil/uL (4.50-6.00); RDW 13.8 % (10.5-14.5); WBC 14.9 thou/uL (4.0-11.0)
[2019-11-22 10:33] LABS: APTT 24.8 Seconds (24.5-32.8); CREATININE 1.3 mg/dL (0.7-1.3); POTASSIUM 4.5 mmol/L (3.5-5.1); PROTIME 10.2 Seconds (9.3-11.4)
[2019-11-22 10:43] LABS: ALBUMIN 3.3 g/dL (3.4-5.0); MAGNESIUM 1.5 mg/dL (1.8-2.4); TOTAL BILIRUBIN 0.5 mg/dL (<0.1-1.0); TROPONIN-I 0.06 ng/mL (<0.06)
[2019-11-22 10:52] LABS: BE(vivo) 3.5 mmol/L (-2 to +3); HCO3 28.9 mmol/L (22.0-26.0); PCO2 VENOUS 46.3 mmHg (41.0-51.0); PO2 VENOUS 50.3 mmHg (35.0-45.0)
[2019-11-22] MEDS ORDERED: ZESTRIL10 MG PO ×2 (10:55)
[2019-11-22] MEDS ORDERED: REGLAN 10 MG TA10 MG PO ×2 (10:56)
[2019-11-22] MEDS ORDERED: TRELEGY ELLIPT1 EACH INH ×4 (10:57→14:33)
[2019-11-22 11:14] LABS: ABSOLUTE NEUTROPHILS 11.9 thou/uL (1.4-8.2); PLATELET ESTIMATE NORMAL
[2019-11-22 11:57] VITALS: BP 107/61
[2019-11-22 13:30] VITALS: BP 125/59
--- NOTE | 2019-11-22 14:30 | EKG ---
[address] [place] [address] ELECTROCARDIOGRAM REPORT Name: HUA BALDERAS Room #: 219-P ADM IN M.R.#: [id number] Admission: 11/22/19 Attend Phys: Dimple Corbett MD Discharge: Date of : 38 Report #: [id number] THIS REPORT FOR: //name// [facility] ED Test Date: 2019-11-22 Test Time: 10:05:53 Pat Name: HUA BALDERAS Department: Room: 219 Gender: M Stab Setter And Driller: KEN : 1940 Requested By: Moshe Mendiola Order Number: [id number] MD: Grady Galvan Measurements Intervals [place] Rate: 82 P: [place]: QRS: -24 QRSD: 127 T: 8 QT: 395 QTc: 462 Interpretive Statements Atrial fibrillation Right bundle branch block Compared to ECG 11/09/2019 08:37:47 Sinus rhythm no longer present Electronically Signed On 11-22-2019 14:30:06 MERCHANDISE CLERK by Grady Galvan [email or web address] <ELECTRONICALLY SIGNED> By: Grady Galvan MD 11/22/19 1430 04 04 Grady Galvan MD /NIRALI
[2019-11-22] MEDS ORDERED: VENTOLIN HFA INH8 GM INH ×2 (14:32)
[2019-11-22 16:20] VITALS: BP 103/52
[2019-11-22 18:57] LABS: URINE BILIRUBIN NEGATIVE (Negative); URINE BLOOD NEGATIVE (Negative); URINE CLARITY CLEAR; URINE COLOR YELLOW; URINE GLUCOSE-RANDOM* NEGATIVE (Negative); URINE KETONES NEGATIVE (Negative); URINE LEUKOCYTES-REFLEX NEGATIVE (Negative); URINE NITRITE-REFLEX NEGATIVE (Negative); URINE PROTEIN (DIPSTICK) NEGATIVE (Negative); URINE SPECIFIC GRAVITY 1.025 (1.005-1.035); URINE UROBILINOGEN 0.2 E.U./dl (0.2-1.0)
[2019-11-22 20:21] VITALS: BP 105/82
[2019-11-23] VITALS (7 sets, daily range): BP systolic 101–127; BP diastolic 46–84
[2019-11-23 03:50] LABS: HEMATOCRIT 36.1 % (42.0-52.0); HEMOGLOBIN 11.9 gm/dL (14.0-18.0); MCH 29.9 pg (26.0-34.0); MCV 90.7 fL (80.0-100.0); PLATELET COUNT 331 thou/uL (150-400); RBC 3.98 mil/uL (4.50-6.00); RDW 13.8 % (10.5-14.5); WBC 12.5 thou/uL (4.0-11.0)
[2019-11-23 04:03] LABS: CALCIUM 8.8 mg/dL (8.5-10.1); CREATININE 1.2 mg/dL (0.7-1.3); MAGNESIUM 1.6 mg/dL (1.8-2.4); POTASSIUM 4.1 mmol/L (3.5-5.1)
[2019-11-23 04:54] LABS: ABSOLUTE NEUTROPHILS 11.1 thou/uL (1.4-8.2); METAMYELOCYTES 1 %
[2019-11-24 03:31] VITALS: BP 116/74
[2019-11-24 04:58] LABS: CREATININE 1.2 mg/dL (0.7-1.3); POTASSIUM 3.6 mmol/L (3.5-5.1)
[2019-11-24] MEDS ORDERED: REGLAN10 MG PO ×2 (07:28)
[2019-11-24] MEDS ORDERED: LOPRESSOR50 PO (07:28)
[2019-11-24] MEDS ORDERED: GLYBURIDE 5 MG T5 M1 PO ×2 (07:28)
[2019-11-24 09:17] VITALS: BP 107/54
--- NOTE | 2019-11-24 11:23 | EKG ---
[address] [place] [address] ELECTROCARDIOGRAM REPORT Name: BALDERASHUA Room #: 219-P ADM IN M.R.#: [id number] Admission: 11/22/19 Attend Phys: Dimple Corbett MD Discharge: Date of : 38 Report #: [id number] THIS REPORT FOR: //name// [facility] Test Date: 2019-11-23 Test Time: 10:05:15 Pat Name: HUA BALDERAS Department: Room: 219 P Gender: M Bow Maker Gift Wrapping: RAMIREZ : 1940 Requested By: Danni Bond Order Number: [id number] MD: Grady Galvan Measurements Intervals [place] Rate: 104 P: [place]: QRS: -42 QRSD: 136 T: 30 QT: 388 QTc: 511 Interpretive Statements Atrial flutter with varied AV block, Multiple ventricular premature complexes Right bundle branch block Compared to ECG 11/22/2019 10:05:53 Electronically Signed On 11-24-2019 11:22:32 [facility] PROMOTER by Grady Galvan [email or web address] <ELECTRONICALLY SIGNED> By: Grady Galvan MD 11/24/19 1122 04 Grady Galvan MD /NIRALI
--- NOTE | 2019-11-24 11:26 | EKG ---
[address] [place] [address] ELECTROCARDIOGRAM REPORT Name: BALDERASHUA Katia Room #: 219-P ADM IN M.R.#: [id number] Admission: 11/22/19 Attend Phys: Dimple Corbett MD Discharge: Date of : 38 Report #: [id number] THIS REPORT FOR: //name// [facility] Test Date: 2019-11-24 Test Time: 07:08:37 Pat Name: HUA BALDERAS Department: Room: 219 P Gender: M Turkey Roll Maker: ELANA : 1940 Requested By: Danni Bond Order Number: [id number] MD: Grady Galvan Measurements Intervals [place] Rate: 79 P: [place]: QRS: 24 QRSD: 139 T: 5 QT: 398 QTc: 457 Interpretive Statements Atrial flutter with varied AV block, Right bundle branch block Compared to ECG 11/22/2019 10:05:53 Atrial fibrillation no longer present Electronically Signed On 11-24-2019 11:26:20 FURNITURE REMOVALIST'S ASSISTANT by Grady Galvan [email or web address] <ELECTRONICALLY SIGNED> By: Grady Galvan MD 11/24/19 1126 Grady Galvan MD /NIRALI
[2019-11-24 12:00] VITALS: BP 97/62
[2019-11-24 16:00] VITALS: BP 106/59
[2019-11-24 20:33] VITALS: BP 112/65
[2019-11-25 04:36] VITALS: BP 96/59
[2019-11-25 08:03] VITALS: BP 120/76
[2019-11-25] MEDS ORDERED: ELIQUIS5 M1 PO ×2 (08:28)
[2019-11-25 09:53] LABS: CALCIUM 9.5 mg/dL (8.5-10.1); CREATININE 1.2 mg/dL (0.7-1.3); POTASSIUM 3.4 mmol/L (3.5-5.1)
[2019-11-25] MEDS ORDERED: LIPITOR 20 MG T20 M1 PO ×2 (10:03)
[2019-11-25] MEDS ORDERED: METOPROLOL SUCC50 MG PO ×2 (10:03)
[2019-11-25] MEDS ORDERED: LASIX 40 MG TAB40 M1 PO ×2 (10:03)
[2019-11-25] MEDS ORDERED: K-DUR 20 MEQ T20 MEQ PO ×2 (10:03)
[2019-11-25 12:31] VITALS: BP 120/76
[2019-11-25 13:20] VITALS: BP 120/76
== END 2019-11-25 14:25 | disposition home health service (06) | DRG 291 ==
LOC: ER 09:53 → EROBS 11:17 → 2N 11:17 → ENTRNSPT 11-25 13:56 → EDTRNSPTSTS 11-25 14:04 → 2N 11-25 14:25
PROVIDERS: Emergency Medicine; Nurse Practitioner; Nurse Practitioner Adult Health; ADMIT Hospitalist
DX: I50.33 Acute on chronic diastolic (congestive) heart failure (principal); J96.21 Acute and chronic respiratory failure with hypoxia; J44.1 Chronic obstructive pulmonary disease with (acute) exacerbation; E87.2 Acidosis; I48.91 Unspecified atrial fibrillation; I11.0 Hypertensive heart disease with heart failure; E78.5 Hyperlipidemia, unspecified; E66.9 Obesity, unspecified; E83.42 Hypomagnesemia; R74.0 Nonspecific elevation of levels of transaminase and lactic acid dehydrogenase [LDH]; D72.829 Elevated white blood cell count, unspecified; R79.89 Other specified abnormal findings of blood chemistry; J84.10 Pulmonary fibrosis, unspecified; I25.10 Atherosclerotic heart disease of native coronary artery without angina pectoris; N40.0 Benign prostatic hyperplasia without lower urinary tract symptoms; R13.10 Dysphagia, unspecified; Z66 Do not resuscitate; E11.9 Type 2 diabetes mellitus without complications; R00.0 Tachycardia, unspecified; Z68.31 Body mass index [BMI] 31.0-31.9, adult; Z95.5 Presence of coronary angioplasty implant and graft; Z79.01 Long term (current) use of anticoagulants; Z79.82 Long term (current) use of aspirin; Z79.84 Long term (current) use of oral hypoglycemic drugs; Z79.899 Other long term (current) drug therapy
CPT/HCPCS: 10081

== ENCOUNTER 2019-12-11 15:04 | Inpatient (IN) | payer OTHER ==
[~2019-12-11] VITALS: Ht 182.9 cm; Wt 109.3 kg
--- NOTE | ~2019-12-11 | HC ---
[facility] [address] CONSULTATION Name: HUA BALDERAS Room #: 218-P ADM IN M.R.#: [id number] Admission: 12/11/19 Attend Phys: Wild Sarah MD Discharge: Date of : 38 Report #: [id number] THIS REPORT FOR: //name// CC: Clarissa Sarah REASON FOR CONSULTATION: Elevated creatinine. REASON FOR PRESENTATION: Shortness of breath. HISTORY OF PRESENT ILLNESS: An 79-year-old with history of pulmonary fibrosis and significant emphysema with COPD. He has been in our facility multiple times for the same issues. He has been in the hospital 09/2019, 10/2019, 11/2019 x 2. He keeps presenting with shortness of breath. He has a normal kidney function on his most recent hospital stay. Attempt to diurese the patient, resulted in significant worsening of his renal function with a creatinine going up to 2.4, mandating a Nephrology consultation. He denies any prior knowledge of kidney disease. He has no history of nonsteroidal anti-inflammatory medication usage. He is maintained on lisinopril and metformin as an outpatient. It is also listed that the patient has been taking furosemide in the past. He most recently was treated for what was described as COPD. He was discharged on 12/02/2019 to represent again with the above-mentioned complaint. PAST MEDICAL HISTORY: 1. Pulmonary fibrosis. 2. Chronic obstructive pulmonary disease. 3. Diastolic heart failure. 4. Diabetes mellitus. 5. Pulmonary hypertension. 6. Coronary artery disease. SOCIAL HISTORY: Denies drug or alcohol abuse. MEDICATIONS: 1. Eliquis. 2. Atorvastatin. 3. Lasix. 4. Flomax. 5. Metformin. 6. Fenofibrate. 7. Lisinopril. 8. Metoprolol. 9. Prednisone. 10. Trazodone. 11. Finasteride. REVIEW OF SYSTEMS: [facility] [address] [place] [address] CONSULTATION Name: HUA BALDERAS Room #: 218-P [facility].#: [id number] Admission: 12/11/19 Attend Phys: Wild Sarah MD Discharge: Date of : 38 Report #: [id number] CONSTITUTIONAL: Significant for shortness of breath on exertion. No weakness, no fever or chills. CARDIOVASCULAR: Dyspnea on exertion, orthopnea, PNDs. PULMONARY: Dyspnea on exertion. No cough, no hemoptysis. GASTROINTESTINAL: No nausea or vomiting. GENITOURINARY: No frequency, no urgency. MUSCULOSKELETAL: Occasional back pain and leg swelling. SKIN: No rash or ulcerations. NEUROLOGICAL: No headache, no dizziness. ALLERGIES: None. PHYSICAL EXAMINATION: GENERAL: The patient is alert, oriented, in no apparent distress. VITAL SIGNS: Blood pressure is 126/76. He had some hypotensive episodes in the last 24 hours. Pulse rate is 101, temperature is 36.7. HEAD AND NECK: No jugular venous distention. CHEST: Decreased air entry bilaterally. CARDIOVASCULAR: No rub detected. ABDOMEN: Soft, nontender. LOWER EXTREMITIES: Trace edema. LABORATORY DATA: Reviewed. Sodium is 135, BUN is 41, creatinine is 2.4. Hemoglobin is 10.3. Urine is not remarkable. IMPRESSION AND PLAN: 1. Acute kidney injury likely related to diuretics. 2. Hypertension. 3. Pulmonary fibrosis. This is a very unfortunate situation with significant pulmonary fibrosis contributing to most of his symptoms. His cardiac echo from 10/2019 was reviewed and this has revealed significant pulmonary hypertension. Unfortunately, those people with the above-mentioned finding will go into acute kidney injury with an attempt of diuresis. He does have significant chest x-ray finding. We will have to discuss with the pulmonary team regarding the long term plan for this patient. We will keep on low dose diuretics, keeping in mind that this might result in significant worsening of his renal function. 4. Salt restrictions. 5. Daily body weight. 6. Continue to work on his lung issues. By: 1038 1304 Bryant Fraga MD /nt
--- NOTE | ~2019-12-11 | EKG ---
[facility] [place] [address] ELECTROCARDIOGRAM REPORT Name: HUA BALDERAS Room #: [facility]#: [id number] Admission: 12/11/19 Attend Phys: Discharge: Date of : 38 Report #: [id number] THIS REPORT FOR: cc: Clarissa Gamboa MD, Cora A. MD Epiphany, Epiphany MD ~ THIS REPORT FOR: //name// [facility] ED Test Date: 2019-12-11 Test Time: 16:13:51 Pat Name: HUA BALDERAS Department: Room: Gender: M Wool Broker: : 1940 Requested By: Anupam Barbour Order Number: [id number] MD: Measurements Intervals [place] Rate: 73 P: [place]: QRS: 64 QRSD: 128 T: -2 QT: 420 QTc: 463 Interpretive Statements Atrial flutter with predominant 4:1 AV block Right bundle branch block Compared to ECG 11/24/2019 07:08:37 AV block, advanced (high-grade) now present [email or web address] By: 1613 1613 Epiphany EpiphanyMD /EPI
[2019-12-11 15:04] VITALS: BP 98/59
[~2019-12-11 15:04] MED LIST changes: +ELIQUIS5 M1 PO; +GLYBURIDE 5 MG T5 M1 PO; +K-DUR 20 MEQ T20 MEQ PO; +LIPITOR 20 MG T20 M1 PO; +LOPRESSOR50 PO; +METOPROLOL SUCC50 MG PO; +REGLAN10 MG PO; +TRELEGY ELLIPT1 EACH INH; +VENTOLIN HFA INH8 GM INH; +ZESTRIL10 MG PO
[2019-12-11 16:45] LABS: ABSOLUTE NEUTROPHILS 2.9 thou/uL (1.4-8.2); BASOPHILS 1.2 % (0.0-2.0); EOSINOPHILS 10.6 % (0.0-3.0); HEMATOCRIT 31.9 % (42.0-52.0); HEMOGLOBIN 10.3 gm/dL (14.0-18.0); LYMPHOCYTES 29.2 % (24.0-44.0); MCH 29.8 pg (26.0-34.0); MCHC 32.2 g/dL (28.0-37.0); MCV 92.6 fL (80.0-100.0); MONOCYTES 10.6 % (1.0-8.0); PLATELET COUNT 209 thou/uL (150-400); POLYS 48.4 % (36.0-66.0); RBC 3.44 mil/uL (4.50-6.00); RDW 15.1 % (10.5-14.5); WBC 5.9 thou/uL (4.0-11.0)
[2019-12-11 16:48] LABS: ANION GAP 5 mmol/L (7-16); BUN 41 mg/dL (7-18); CALCIUM 8.6 mg/dL (8.5-10.1); CHLORIDE 101 mmol/L (98-107); CO2 29 mmol/L (21-32); CREATININE 2.4 mg/dL (0.7-1.3); GLUCOSE 113 mg/dL (74-106); POTASSIUM 4.7 mmol/L (3.5-5.1); SODIUM 135 mmol/L (136-145)
[2019-12-11 16:57] LABS: TROPONIN-I <0.06 ng/mL (<0.06)
--- NOTE | 2019-12-11 17:05 | NUR ---
CALLED PHARMACY REQUESTING ANTIBIOTICS
[2019-12-11] MEDS ORDERED: TOPROL XL50 MG (17:17)
[2019-12-11] MEDS ORDERED: PREDNISONE 20 M20 M1 PO (17:19)
[2019-12-11 18:43] VITALS: BP 112/66
[2019-12-11] MEDS ORDERED: METOCLOPRAMIDE10 MG PO (18:54)
[2019-12-11] MEDS ORDERED: PROSCAR 5MG TABL5 M1 PO (18:55)
[2019-12-11] MEDS ORDERED: TRAZODONE HCL100 MG PO (18:57)
[2019-12-11] MEDS ORDERED: TRAZODONE 150150 M1 PO (18:57)
[2019-12-11 20:03] LABS: BE(vivo) 0.7 mmol/L (-2 to +3); HCO3 24.5 mmol/L (22.0-26.0); PCO2 36.6 mmHg (35.0-45.0); PO2 71.5 mmHg (80.0-100.0); pH 7.444 (7.360-7.450); sO2 95.1 % (92.0-98.0)
[2019-12-11 21:39] VITALS: BP 99/76
[2019-12-11 23:58] VITALS: BP 106/57
[2019-12-12] VITALS (8 sets, daily range): BP systolic 101–128; BP diastolic 52–77
[2019-12-12] MEDS ORDERED: LIPITOR80 MG PO (00:10)
--- NOTE | 2019-12-12 04:46 | NUR ---
PT WAS AN ER ADMIT.PT WAS ADMITTED WITH PNA. DAUGHTER AND GRAND-DAUGHTER PRESENT AT BEDSIDE UPON ARRIVAL FROM ER. NO SIGN OF DISTRESS NOTED IN PT. PT IS ALERT AND ORIENTED. PT IS ON OXYGEN. ADMISSION ASSESSMENT, EDUCATION DOCUMENTED. DENIES ANY PAIN. CONSENT SIGN. PT REFUSES BED ALARM. SCHEDULED MEDS ADMINISTERED TO PT. CONTINUE TO MONITOR BREATHING. DENIES ANY FURTHER NEEDS AT THIS TIME.
[2019-12-12 09:30] LABS: URINE BILIRUBIN NEGATIVE (Negative); URINE BLOOD NEGATIVE (Negative); URINE CLARITY CLEAR; URINE COLOR YELLOW; URINE GLUCOSE-RANDOM* NEGATIVE (Negative); URINE KETONES NEGATIVE (Negative); URINE LEUKOCYTES NEGATIVE (Negative); URINE NITRITE NEGATIVE (Negative); URINE PROTEIN (DIPSTICK) NEGATIVE (Negative); URINE SPECIFIC GRAVITY 1.025 (1.005-1.035); URINE UROBILINOGEN 0.2 E.U./dl (0.2-1.0)
[2019-12-12 11:25] LABS: URINE CREATININE-RANDOM* 118.3 mg/dL; URINE PROTEIN-RANDOM* 15.4 mg/dL (<11.9)
--- NOTE | 2019-12-12 13:57 | NUR ---
FAXED REFERRAL TO [facility] SPOKE WITH PAULA IN ADM SHE RECEIVED REFERRAL AND WILL REVIEW AND SEE IF THEY WILL HAVE A BED AVAILABLE FOR POSS DC TOMORROW AND FAMILY IS WANTING TO TOUR FACILITY. FA[facility]ED REFERRAL TO [facility] SPOKE WITH BRENDA IN ADM SHE RECEIVED REFERRAL AND WILL REVIEW AND SEE IF BED AVAILABLE AND IF THEY ACCEPT PT'S INSURANCE. DP TO FOLLOW.
--- NOTE | 2019-12-12 15:16 | NUR ---
Case opened to follow for dc planning.Gold Buyer visited with the pt and his dtr/dpoa Tomasa and gdkathleen at bedside. Pt is a readmission and was on service with [facility] prior to admission. He has advanced lung disease and utilizes 4l O2 per nc at home and 6l with activity. He has a concentrator per [employer] that goes to 12liters. He lives alone in his ranch style home and uses a rwalker for gait. He has had a decline in his activity due to sob and endurance. Pt and family agreeable to snf stay and [employer] snf listing reviewed. They are interested in [facility], [facility] and . DC capacity planner faxed referrals. [facility] can accept and has vital stem tx. [facility] is oon with ins. [facility] is in network but can not provide vital stem. Pt's dtr touring [facility] and has called back to confirm they would like pt to go there. [facility] to submit for ins auth. Will fax additional clinical that they are requesting.
--- NOTE | 2019-12-12 16:49 | NUR ---
PT CARE ASSUMED APROXIMATELY AT 0700. PT ASSESSMENTS CHARTED. PT HAS DYSPNEA ON EXERTION. PT UTILIZES A CANE WHEN AMBULATING. PT ON NECTAR THICKENED LIQUIDS. PT DENIES PAIN AT THIS TIME.
[2019-12-13] VITALS (8 sets, daily range): BP systolic 128–145; BP diastolic 80–92
--- NOTE | 2019-12-13 04:48 | NUR ---
ASSESSMENT DOCUMENTED.PT BEEN RESTING IN NO ACUTE DISTRESS.A/OX4.VSS.REMAIN ON O2 AT 4LITERS PNC,SATS ADEQUATE.RICARDO NOTED.SR ON MONITOR.VOIDING ADEQUATELY VIA URINAL.BLADDER SCANNED ORDERED.235ML OF RESIDUAL NOTED ON BLADDER SCAN.DENIES PAIN OR ANY DISTRESS AT THIS TIME.POC IS TO CONT TO MONITOR RESPIRATORY SYSTEM,AND CONT WITH CURRENT TX.
[2019-12-13 06:04] LABS: ALBUMIN 3.1 g/dL (3.4-5.0); CALCIUM 8.8 mg/dL (8.5-10.1); CREATININE 1.6 mg/dL (0.7-1.3); PHOSPHORUS 3.4 mg/dL (2.5-4.9); POTASSIUM 4.5 mmol/L (3.5-5.1)
[2019-12-13 12:32] LABS: BE(vivo) 0.1 mmol/L (-2 to +3); HCO3 24.2 mmol/L (22.0-26.0); PCO2 37.6 mmHg (35.0-45.0); PO2 71.3 mmHg (80.0-100.0); pH 7.427 (7.360-7.450); sO2 94.8 % (92.0-98.0)
--- NOTE | 2019-12-13 14:54 | NUR ---
FAXED TODAY'S THERAPY (OT) NOTES TO [facility] RECEIVED CONFIRMATION AND LEFT MSG WITH BRENDA IN ADM.
--- NOTE | 2019-12-13 16:32 | NUR ---
[facility] can accept the pt pending insurance auth. Possible wkend dc if cleared by pulmonary and auth in place. Pt needing increased o2 to 7liters with activity today. Therapy working with the pt. Pt getting iv lasix and steriods. Family is supportive and at bedside throughout the day.Awaiting confirmation of ins auth from the [facility] for possible wkend dc.
--- NOTE | 2019-12-13 17:49 | NUR ---
PT CARE ASSUMED APROXIMATELY 0700. PT ASSESSMENTS CHARTED. PT EXPERIENCED A PROLONGED PERIOD OF DYSPNEA. PT HAS PC BLOOD TINGED ON OCCASSION. PT DENIES ANY CURRENT PAIN. LEFT IV ATTEMPTED BUT FAILED. RIGHT AC WRAPPED IN KERLIX TO ATTEMPT TO HAVE PT PREVENT BENDING THAT ARM. PT RESTING COMFORTABLY.
[2019-12-14 02:05] LABS: CALCIUM 8.9 mg/dL (8.5-10.1); CREATININE 1.8 mg/dL (0.7-1.3); POTASSIUM 4.3 mmol/L (3.5-5.1)
[2019-12-14 04:45] VITALS: BP 130/79
--- NOTE | 2019-12-14 05:34 | NUR ---
ASSUMED PT CARE AT 1900. PT IS ALERT AND ORIENTED WITH NO SIGN OF DISTRESS NOTED. BREATHING IS STABLE. FALL PRECAUTION IN PLACE. ASSESSMENT COMPLETED AND DOCUMENTED. SCHEDULED MEDS ADMINISTERED TO PT. PT TOLERATED PO INTAKE WITHOUT ANY DIFFFICULTY. DENIES ANY PAIN. NO FURTHER NEEDS AT THIS TIME.
[2019-12-14 08:00] VITALS: BP 143/91
--- NOTE | 2019-12-14 08:17 | NUR ---
ASSUMED CARE OF PT APPROX 0715, REPORTS OF 02 AT 5L AND RT TX HAD JUST TURNED HIM UP TO 7L. HE'S A&0X4, SEE SEPARATE INTERVENTIONS FOR ASSESSMENTS, WEARS 02 AT HOME 4L PER PT AND REPORT. LIKES ROOM COOL. NO NEEDS AT THIS TIME. ENCOURAGED IM TO USE CALL LIGHT FOR ANY NEEDS.
[2019-12-14 12:19] VITALS: BP 126/83
[2019-12-14 16:00] VITALS: BP 144/79
[2019-12-14 18:58] VITALS: BP 133/71
[2019-12-15 01:33] LABS: BE(vivo) 8.4 mmol/L (-2 to +3); HCO3 32.8 mmol/L (22.0-26.0); PCO2 44.4 mmHg (35.0-45.0); PO2 56.2 mmHg (80.0-100.0); pH 7.486 (7.360-7.450); sO2 91.2 % (92.0-98.0)
[2019-12-15 04:08] VITALS: BP 133/94
--- NOTE | 2019-12-15 05:00 | NUR ---
ASSUMED PT CARE AT 1900. PT IS ALERT AND ORIENTED. FALL PRECAUTION IN PLACE. PT IS STABLE, NO FAMILY AT BEDSIDE. ASSESSMENT DOCUMENTED. PT WAS ON 6L NC AT THE START OF THE SHIFT. AROUND MIDNIGHT, PT WENT TO THE BATHROOM, AND STARTED TO DESAT. HIS O2 WAS IN THE 70'S, PT BECAME DYSPNEIC. RT WAS NOTIFIED AND BREATHING TREATMENT WAS GIVEN AND OXYGEN INCREASED TO 10L NC. PT O2 SATURATION WAS AT 82%-84%. DR HALEIGH PARKER NOTIFIED ON PT STATUS AND PHYSICIAN WAS ABOUT TO TALK TO THERAPIST. PT WAS PLACED ON A HIGH FLOW OXYGEN AND ABG WAS DONE. PT WAS STABLE. DENIES ANY PAIN. SCHEDULED MEDS ADMINISTERED TO PT. TOLERTED PO INTAKE. CONITNUE TO MONITO PATIENT. DENIES ANY FURTHER NEEDS AT THIS TIME.
--- NOTE | 2019-12-15 08:08 | NUR ---
ASSUMED CARE OF PT APPROX 0715, IN [employer]. HAS BIPAP ON PLACED DURING THE NIGHT, C/O GENERALIZED PAIN; ADM TYLENOL. LOOKING FORWARD TO HIS SHIRLEY'S VISIT FROM [place]. WILL SEEK OUT [facility] FOR EASE OF BREATHING/>HR/COMFORT. STILL ADVENTITIOUS BREATH SOUNDS, COUGH, AND SOME BLOOD TINGED SPUTUM ONGOING SINCE ADMISSION, HE STATES PHYSICIAN SAID IT'S IRRITATION FROM COUGH ETC. LIKES TO TALK ABOUT HIS SPOUSE OF 54 YEARS WHO PASSED WITHIN LAST FIVE YEARS. ENCOURAGED HIM TO USE CALL LIGHT FOR ANY NEEDS.
[2019-12-15 08:15] VITALS: BP 124/76
[2019-12-15 12:00] VITALS: BP 87/50
[2019-12-15 16:00] VITALS: BP 113/62
[2019-12-15 20:10] VITALS: BP 108/47
[2019-12-16 04:38] LABS: HEMATOCRIT 34.8 % (42.0-52.0); HEMOGLOBIN 11.6 gm/dL (14.0-18.0); MCH 30.6 pg (26.0-34.0); MCHC 33.3 g/dL (28.0-37.0); MCV 91.9 fL (80.0-100.0); PLATELET COUNT 328 thou/uL (150-400); RBC 3.78 mil/uL (4.50-6.00); RDW 15.2 % (10.5-14.5); WBC 10.6 thou/uL (4.0-11.0)
[2019-12-16 05:07] LABS: ANION GAP 8 mmol/L (7-16); BUN 46 mg/dL (7-18); CALCIUM 8.7 mg/dL (8.5-10.1); CHLORIDE 103 mmol/L (98-107); CO2 35 mmol/L (21-32); CREATININE 1.6 mg/dL (0.7-1.3); GLUCOSE 103 mg/dL (74-106); POTASSIUM 3.8 mmol/L (3.5-5.1); SGOT 24 U/L (15-37); SGPT 29 U/L (30-65); SODIUM 146 mmol/L (136-145); TOTAL BILIRUBIN 1.5 mg/dL (<0.1-1.0); TOTAL PROTEIN 7.1 g/dL (6.4-8.2)
--- NOTE | 2019-12-16 05:13 | NUR ---
ASSUMED PT CARE AT 1900. PT IS ALERT AND ORIENTED WITH NO SIGN OF DISTRESS NOTED IN PT. DENIES ANY PAIN. PT IS STABLE. PT DESATS WITH ACTVITY. OPTIFLOW IS IN USE. FALL PRECAUTION IN PLACE. ASSESSMENT COMPLETED AND DOCUMENTED. SCHEDULED MEDS ADMINISTERED TO PT. OXYGEN SETTINGS ADJUSTED BECAUSE O2 LEVEL WENT DOWON TO 82%. CONTINUE TO MONITOR PT'S BREATHING. DENIES ANY PAIN, NO REQUEST MADE AT THIS TIME.
[2019-12-16 05:15] VITALS: BP 105/63
[2019-12-16 07:40] VITALS: BP 110/80
[2019-12-16 08:37] LABS: ABSOLUTE NEUTROPHILS 7.4 thou/uL (1.4-8.2); METAMYELOCYTES 1 %; NUCLEATED RBCS 1 /100WBC; PLATELET ESTIMATE NORMAL
[2019-12-16 12:00] VITALS: BP 101/85
--- NOTE | 2019-12-16 15:21 | NUR ---
[facility] Rec auth noted patient on optiflow high flow oxygen. Sp with admissions at [facility] who reports they cannot accomdate that oxygen flow. Sp with phys who reports to inquire into LTAC. Sp with dtr and reviewed LTAC and options. She is interested in [facility]. Referral sent for review.
[2019-12-16 16:30] VITALS: BP 84/52
--- NOTE | 2019-12-16 17:07 | NUR ---
FAXED REFERRAL TO [facility] OF OP SPOKE WITH LILLIAN IN ADM SHE RECEIVED REFERRAL AND WILL REVIEW. DP TO FOLLOW.
--- NOTE | 2019-12-16 18:33 | NUR ---
ASSUMED CARE 0700, ALERT X4 WITH FORGETFULLNESS. CONTINUE ON HIGH FLOW OPTI FLOW, AND CONTINOUS SAT MONITOR. PT DE-SATS WHEN TRANSFERING/AMBLATING. DENIES CHEST PAIN. ON STRICT ASPIRATION RISK AND EDUCATION GIVEN TO PATIENT AND FAMILY. UP WITH ASSISTANCE. FALL PRECATIONS IN PLACE. WAITING FOR SNF PLACEMENT.
[2019-12-16 19:58] VITALS: BP 95/65
[2019-12-17 05:07] LABS: CALCIUM 8.7 mg/dL (8.5-10.1); CREATININE 1.5 mg/dL (0.7-1.3); POTASSIUM 3.8 mmol/L (3.5-5.1)
--- NOTE | 2019-12-17 05:18 | NUR ---
ASSUMED PT CARE AT 1900. PT IS SLEEPING. NO FAMILY AT BEDSIDE. PT IS STILL ON HIGH FLOW OXYGEN. ASSESSMENT COMPLETED AND DOCUMENTED. FALL PRECAUTION IN PLACE. SCHEDULED MEDS ADMINISTERES TO PT. TOLRATED PO INTAKE. DENIES ANY FURTHER NEEDS AT THIS TIME.
[2019-12-17 05:37] VITALS: BP 108/74
[2019-12-17 07:45] VITALS: BP 90/57
--- NOTE | 2019-12-17 09:35 | NUR ---
spoke with [facility] they cannot accomadate high flow oxygen need. Skilled facilities cannot accomdate. Patient appropriate for LTAC care. Reviewed yesterday with dtr. Interest in [facility]. Sp with [facility] this am they rec referral they are awaiting corporate for review and acceptance of patient.
[2019-12-17 11:55] VITALS: BP 104/63
--- NOTE | 2019-12-17 12:51 | NUR ---
requested by phys to inquire into LTAC yesterday. Reviewed with dtr [facility] planned to submit for auth. Patients liter flow down to 7 liters nasal cannula. Sp with dtr on how she wants to pursue LTAC vs skilled. At this time she wants to inquire if [facility] can accept. New referral packet to [facility].
--- NOTE | 2019-12-17 14:09 | NUR ---
ASSUMED PT CARE SHIFT CHANGE. ASSESSMENTS CHARTED. MEDS GIVEN PER JAN. PT ALERT AND ORIENTED. VSS-BP LOW TOPROL HELD THIS AM. VS CONTINUED TO BE STABLE. FAMILY AT BEDSIDE. O2 SATS WNL ON HIGH FLOW O2. RT WEANED PT DOWN TO NC 7L, PT REQUIRING 8L WITH ACTIVITY. RECOVERS WITH REST. PT LABORED BREATHING WITH ACTIVITY. DENIES CP/ PAIN. URINATING PER URINAL AND COMMODE. MEDSURG ORDERS IN PLACE. REPORT GIVEN TO NURSE ADELA 4S. PT TRANSFERRED PER [facility]. PT LEFT WITH ALL BELONGINGS. TELE REMOVED. CHART GIVEN TO TRANSPORT STAFF.
[2019-12-17 14:47] VITALS: BP 114/59
--- NOTE | 2019-12-17 15:01 | NUR ---
FAXED REFERRAL TO [facility] SPOKE WITH BRENDA IN ADM SHE RECEIVED REFERRAL AND WILL RESUBMIT FOR AUTH.
[2019-12-17 17:37] VITALS: BP 116/60
[2019-12-17 19:40] VITALS: BP 105/55
--- NOTE | 2019-12-17 19:48 | NUR ---
ASSUMED CARE OF PT AROUND 1445 TODAY. PT ALERT AND ORIENETD TIMES FOUR. VSS, 94%7L. PT DENIES PAIN. PT TOLERATES DINNER. PT UP WITH ASSIST ON ONE. WILL CONTINUE TO MONITOR.
--- NOTE | 2019-12-18 03:00 | NUR ---
PT IS ALERT AND ORIENTED. QUIET MAN.USES CALL LIGHT. PT STOOD BY THE BEDSIDE WITH SBA TO USE URINAL. CONTINUES ON 12/20L/NC SATTING ABOVE 94% PER CONT PULSE OX. ONCE TITRATED TO 5L. PT DENIES PAIN.SLEPT THE WHOLE NOC. AWAITING AUTH TO LTAC/SNF. SWALLOW OKAY UNDER THE SWALLOW RESTRICTIONS OUTLINED. NO FURTHER CONCERNS.
[2019-12-18 03:50] VITALS: BP 113/64
[2019-12-18 08:31] VITALS: BP 120/68
[2019-12-18] MEDS ORDERED: TORSEMIDE20 MG PO (10:45)
--- NOTE | 2019-12-18 10:58 | NUR ---
PT ON 7L NC WITH CONTINUOUS PULSE OXIMETER IN PLACE. PT DENIES RESP DISTRESS, NO S/S NOTED. ASSESSMENTS COMPLETE AND MEDS GIVEN PER MAR. PT SITTING ON SIDE OF BED TO EAT BREAKFAST, MAINTAINING COMPLIANCE WITH DIET ORDERS. FALL PRECAUTIONS IN PLACE, CALLS FOR ASSIST APPROPRIATELY. PT VOIDING PER URINAL WITH ADEQUATE URINARY OUTPUT NOTED. PT STATES HE IS READY TO GO TO REHAB, CASE MANAGEMENT AWARE AND WORKING ON PLACEMENT FOR PATIENT.
--- NOTE | 2019-12-18 15:59 | NUR ---
PT DISCHARGING TODAY TO [facility] FAXED DC ORDERS/SUMMARY TO FACILITY SPOKE WITH BRENDA IN ADM SHE RECEIVED ORDERS AND ARRANGED TRANSPORT BY [facility] FOR 1730. FAMILY AT BEDSIDE NOTIFIED OF TRANSPORT TIME BY SW. UNIT NOTIFIED AND CHART COPY PER US. RN TO CALL REPORT TO [phone].
--- NOTE | 2019-12-18 16:56 | NUR ---
PT IS TO DC TO [facility] THIS DAY. CHART COPY ORDERED. ORDERS FAXED. CM NOTIFIED PT AND DTR. [facility]ELCHA[facility] TRANSPORT ARRANGED FOR 1729. NO OTHER CM INTERVENTION INDICATED. CASE CLOSED.
[2019-12-18 17:31] VITALS: BP 108/55
== END 2019-12-18 16:15 | DRG 177 ==
LOC: ER 15:04 → 2N 17:45 → EROBS 17:45 → 2N 20:56 → ENTRNSPT 12-17 13:50 → 4S 12-17 14:01 → EDTRNSPTSTS 12-17 14:02 → 4S 12-18 16:15
PROVIDERS: Emergency Medicine; Hospitalist; Nurse Practitioner; Pediatrics; ADMIT Internal Medicine
DX: J69.0 Pneumonitis due to inhalation of food and vomit (principal); J96.21 Acute and chronic respiratory failure with hypoxia; I50.33 Acute on chronic diastolic (congestive) heart failure; J44.1 Chronic obstructive pulmonary disease with (acute) exacerbation; N17.9 Acute kidney failure, unspecified; J44.0 Chronic obstructive pulmonary disease with (acute) lower respiratory infection; I13.0 Hypertensive heart and chronic kidney disease with heart failure and stage 1 through stage 4 chronic kidney disease, or unspecified chronic kidney disease; I48.0 Paroxysmal atrial fibrillation; E78.5 Hyperlipidemia, unspecified; I27.20 Pulmonary hypertension, unspecified; I25.10 Atherosclerotic heart disease of native coronary artery without angina pectoris; T50.2X5A Adverse effect of carbonic-anhydrase inhibitors, benzothiadiazides and other diuretics, initial encounter; Y92.89 Other specified places as the place of occurrence of the external cause; J84.10 Pulmonary fibrosis, unspecified; E11.22 Type 2 diabetes mellitus with diabetic chronic kidney disease; N18.9 Chronic kidney disease, unspecified; N40.0 Benign prostatic hyperplasia without lower urinary tract symptoms; K21.9 Gastro-esophageal reflux disease without esophagitis; E66.01 Morbid (severe) obesity due to excess calories; G47.00 Insomnia, unspecified; F19.90 Other psychoactive substance use, unspecified, uncomplicated; Z95.5 Presence of coronary angioplasty implant and graft; Z87.891 Personal history of nicotine dependence; Z68.32 Body mass index [BMI] 32.0-32.9, adult; Z91.19 Patient's noncompliance with other medical treatment and regimen; Z88.6 Allergy status to analgesic agent; Z79.899 Other long term (current) drug therapy
CPT/HCPCS: 10081; 10100

== ENCOUNTER 2019-12-25 14:24 | Inpatient (IN) | payer OTHER ==
[~2019-12-25] VITALS: Ht 185.4 cm; Wt 106.2 kg
--- NOTE | ~2019-12-25 | HC ---
[facility] [address] [place] [address] CONSULTATION Name: HUA BALDERAS Room #: 202-P [facility] IN M.R.#: [id number] Admission: 12/25/19 Attend Phys: Wild Sarah MD Discharge: Date of : 39 Report #: [id number] THIS REPORT FOR: cc: Clarissa Gamboa MD, Cora A. MD Smithson, David G. MD ~ CC: Clarissa Sarah DATE OF SERVICE: 12/30/2019 HISTORY OF PRESENT ILLNESS: The patient is an 79-year-old male recently discharged from [facility] on 12/18/2019 after one week hospitalization to [facility] nursing [facility]. He was readmitted with severe desaturation at the [facility], he was noted to have aspiration pneumonia with dysphagia, pulmonary edema, acute exacerbation of chronic obstructive pulmonary disease. He has been on 8-10 liters of nasal prong O2. He is being treated for right upper lobe pneumonia, pulmonary hypertension, and dysphagia. The multiple cyber security consultant physicians are involved. We are seeing him in rehabilitation medicine consultation. He has a prior history of pulmonary fibrosis, coronary artery disease with prior cardiac stents, history of diastolic heart failure, BPH, obesity, and chronic kidney disease. MEDICATIONS: Please see the full medication listing. ALLERGIES: IBUPROFEN. HABITS: Former tobacco smoker, 2 packs per day, quit greater than a year ago. No history of alcohol abuse. SOCIAL HISTORY: He had been living in his own home setting; however, the plan is to move in with his daughter and her family. There are 6 people that lives there. So, he will have / care. They have a ramp into the house. This is in [place], [place]. Discussed with the patient's daughter. She does not work outside the home and will be available along with her family to care for the patient. REVIEW OF SYSTEMS: Did not offer any current complaints of chest pain, shortness of breath or abdominal discomfort. He notes some shortness of breath with significant increased activity. No complaints of dizziness, headache, bowel or bladder changes, focal extremity complaints. PHYSICAL EXAMINATION: GENERAL: An 79-year-old white male, overweight, no obvious distress. VITAL SIGNS: Last recorded temperature 97.5, pulse 103, respirations 20, and blood pressure 109/69. He is alert. [address] [address] CONSULTATION Name: HUA BALDERAS Room #: 202-P [facility] IN M.R.#: [id number] Admission: 12/25/19 Attend Phys: Wild Sarah MD Discharge: Date of : 39 Report #: [id number] HEENT: Appeared to be benign. NEUROLOGIC: Cranial nerves are grossly intact. Facies are symmetric. He is currently on 7 liters nasal cannula at rest. EXTREMITIES: He has functional range of motion of both upper extremities. Strength is grade 4- to 3+/5. DTRs are trace to 1. Lower extremities, no focal calf swelling, functional range of motion with strength grade 4-/5. He is pleasant, follows commands. Functionally, he has been min assist with sit to stand. He did ambulate a short distance with a front-wheeled walker, min assist, but was needing 9 liters initially. In occupational therapy, ____ supervision for dressing, although being monitored closely regarding his O2 saturation, needs frequent rest breaks. In speech therapy, he is on a mechanical soft diet with nectar thickened liquids. ASSESSMENT: An 79-year-old white male with the following problems list: 1. Pulmonary rehabilitation. 2. Medical complexity with generalized debilitation. 3. Tqlxt-iv-uhartyb hypercapnic hypoxic respiratory failure, improved. 4. Pneumonia, right upper lobe. 5. Dysphagia, on mechanical soft nectar thickened liquids. 6. Chronic obstructive pulmonary disease exacerbation. 7. Pulmonary fibrosis. 8. Pulmonary hypertension. 9. Acute on chronic diastolic heart failure, improved. 10. Diabetes mellitus type 2. 11. Hypertension. PLAN: Family refuses to go back to a fci facility. Would agree that he would benefit from a short acute in-hospital inpatient rehabilitation stay. ____ further work on improving his endurance, education regarding frequent rest breaks. Speech therapy to assist as he is on nectar thickened liquids. PT and OT to maximize mobility and ADLs. He would have good continuity of care as the multiple cyber security consultant physicians could continue to follow while he is over on the acute in-hospital inpatient rehabilitation [facility]. Daughter has definitive plans for him to go to her house with 24/7 assistance once he is further improved, so we have a good discharge plan in place from the rehab [facility]. Insurance precertification issues to be checked regarding an acute in-hospital inpatient rehabilitation stay, so that we can work towards getting this gentleman safely back into the home setting. Thank you for asking us to assist in this patient's care. We will be glad to follow along with you regarding his rehab therapy needs. By: [id number] Mike Mays MD /nt
[~2019-12-25 14:24] MED LIST changes: +LIPITOR80 MG PO; +METOCLOPRAMIDE10 MG PO; +PROSCAR 5MG TABL5 M1 PO; +TOPROL XL50 MG; +TORSEMIDE20 MG PO; +TRAZODONE 150150 M1 PO; +TRAZODONE HCL100 MG PO
[2019-12-25 14:25] VITALS: BP 146/89
[2019-12-25 14:51] LABS: HEMATOCRIT 34.3 % (42.0-52.0); HEMOGLOBIN 11.1 gm/dL (14.0-18.0); MCH 29.9 pg (26.0-34.0); MCHC 32.3 g/dL (28.0-37.0); MCV 92.3 fL (80.0-100.0); PLATELET COUNT 346 thou/uL (150-400); RBC 3.72 mil/uL (4.50-6.00); RDW 15.7 % (10.5-14.5); WBC 9.1 thou/uL (4.0-11.0)
[2019-12-25 15:05] LABS: CALCIUM 8.7 mg/dL (8.5-10.1); CREATININE 1.8 mg/dL (0.7-1.3); POTASSIUM 4.7 mmol/L (3.5-5.1)
[2019-12-25 15:13] LABS: MAGNESIUM 1.6 mg/dL (1.8-2.4); TROPONIN-I 0.06 ng/mL (<0.06)
[2019-12-25 15:26] LABS: ABSOLUTE NEUTROPHILS 7.1 thou/uL (1.4-8.2); METAMYELOCYTES 1 %
[2019-12-25 16:43] LABS: BE(vivo) -1.9 mmol/L (-2 to +3); HCO3 23.9 mmol/L (22.0-26.0); PCO2 45.4 mmHg (35.0-45.0); PO2 63.6 mmHg (80.0-100.0)
--- NOTE | 2019-12-25 16:43 | EKG ---
[facility] [place] [address] ELECTROCARDIOGRAM REPORT Name: HUA BALDERAS Room #: [facility]#: [id number] Admission: 12/25/19 Attend Phys: Discharge: Date of : 38 Report #: [id number] THIS REPORT FOR: cc: Clarissa Gamboa MD, Cora A. MD Lundgren, Craig H. MD [facility] THIS REPORT FOR: //name// [facility] ED Test Date: 2019-12-25 Test Time: 14:50:12 Pat Name: HUA BALDERAS Department: Room: Gender: Gore Stitcher: [facility] : 1940 Requested By: Bria Cabrera Order Number: [id number] MD: Danis Valadez Measurements Intervals [place] Rate: 79 P: [place]: QRS: 29 QRSD: 136 T: -21 QT: 387 QTc: 444 Interpretive Statements Atrial flutter Right bundle branch block Compared to ECG 12/11/2019 16:13:51 No significant change was found Electronically Signed On 12-25-2019 16:42:52 FOUNDATION ASSISTANT by Danis Valadez [email or web address] <ELECTRONICALLY SIGNED> By: Danis Valadez MD, [facility] 12/25/19 1642 1450 145 Danis Valadez MD, [facility] /EPI
[2019-12-25] MEDS ORDERED: ELIQUIS5 MG PO (19:09)
[2019-12-25 20:45] LABS: URINE BILIRUBIN NEGATIVE (Negative); URINE BLOOD NEGATIVE (Negative); URINE CLARITY CLEAR; URINE COLOR YELLOW; URINE GLUCOSE-RANDOM* 2+ (Negative); URINE KETONES NEGATIVE (Negative); URINE LEUKOCYTES-REFLEX NEGATIVE (Negative); URINE NITRITE-REFLEX NEGATIVE (Negative); URINE PROTEIN (DIPSTICK) NEGATIVE (Negative); URINE UROBILINOGEN 0.2 E.U./dl (0.2-1.0)
[2019-12-26 06:04] LABS: HEMATOCRIT 30.1 % (42.0-52.0); HEMOGLOBIN 9.9 gm/dL (14.0-18.0); MCH 30.3 pg (26.0-34.0); MCV 91.8 fL (80.0-100.0); PLATELET COUNT 302 thou/uL (150-400); RBC 3.28 mil/uL (4.50-6.00); RDW 15.4 % (10.5-14.5); WBC 9.3 thou/uL (4.0-11.0)
[2019-12-26 06:09] LABS: CALCIUM 8.4 mg/dL (8.5-10.1); CREATININE 1.2 mg/dL (0.7-1.3); POTASSIUM 4.3 mmol/L (3.5-5.1)
[2019-12-26 07:49] VITALS: BP 136/87
[2019-12-26 11:16] LABS: ABSOLUTE NEUTROPHILS 7.3 thou/uL (1.4-8.2); ANISOCYTOSIS 1+; METAMYELOCYTES 2 %
[2019-12-26 12:11] VITALS: BP 107/62
--- NOTE | 2019-12-26 12:50 | NUR ---
REPORT CALLED TO CCU
[2019-12-26 13:04] VITALS: BP 104/60
[2019-12-26 14:11] VITALS: BP 110/65
[2019-12-26 15:15] VITALS: BP 114/64
--- NOTE | 2019-12-26 17:33 | NUR ---
ASSUMED CARE AT 0700, SHIFT ASSESSMENT DONE, MEDS GIVEN, DENIES PAIN, NAUSEA, VOMITING. ADMISSION DONE, ON HIGH FLOW NASAL CANULA, 6L O2. NO SKIN ISSUES NOTED. WILL CONTINUE TO ASSESS AND ASSIST WITH ADLs NEEDED.
--- NOTE | 2019-12-26 19:27 | NUR ---
ASSUMED CARE AT 1300, SHIFT ASSESSMENT DONE,
[2019-12-26 20:30] VITALS: BP 124/87
--- NOTE | 2019-12-27 04:19 | NUR ---
1900. PT ALERT AND ORIENTED. DENIES PAIN, CHEST PAIN, NAUSEA OR VOMITING. VSS. CONTINUES WITH IV ABX. NO FEVER OVERNIGHT. RT WITH BREATHING TREATMENTS. SA ON THE MONITOR, WILL CONTINUE WITH POC.
[2019-12-27 04:30] VITALS: BP 147/80
[2019-12-27 06:06] LABS: CALCIUM 8.8 mg/dL (8.5-10.1); CREATININE 1.4 mg/dL (0.7-1.3); POTASSIUM 4.3 mmol/L (3.5-5.1)
[2019-12-27 07:30] VITALS: BP 134/71
[2019-12-27 14:32] VITALS: BP 147/80
--- NOTE | 2019-12-27 14:49 | NUR ---
ASSUMED CARE AT 0700, SHIFT ASSESSMENT DONE, MEDS GIVEN, VSS. DENIES PAIN, NAUSEA, VOMITING. REMAINS ON 6L HIGH FLOW NASAL CANULA, WORKED WITH PHYSICAL AND OCCUPATIONAL THERAPHY, SAT UP IN THE CHAIR FOR 2 HOURS. DENIES PAIN, NAUSEA, VOMITING. WILL COTINUE TO ASSESS AND ASSIST WITH ADLs NEEDED.
--- NOTE | 2019-12-27 15:18 | NUR ---
Case opened to follow for dc planning. Pt readmitted from snf stay at [facility]. He was dc'd there for rehab on 12/18/2019. Pt's dtr/dpjudith Randolph here with his this am and indicates that they do not want to go back to snf. They would like pt to go stay with the dtr at id. She lives in [place], [place] and her address is on the pt's facesheet. She has already spoken to his o2 company, [employer] about moving his home o2 setup to her house. She reports that the pt will need a w/c and well as hh. She is open to using [facility] for the w/c and any hh provider in network with the insurance. The pt's prior hh agency, [facility] does not go to [facility]. Mail Handlers Supervisor spoke with [facility] and [facility]. [facility] can not accept new referrals at this time and [facility] is oon with ins. Referral called and faxed to [facility] [phone] and fax [phone]. They are reviewing it. Will [facility] to see what they will need to get a w/c ordered. No weekend dc anticipated. Pt is a DNR. Was on 15 liters earlier today but now down to 6liters. Pt is being treated for pulm fibrosis,chf,copd and crf. Will follow up on Monday.
[2019-12-27 16:15] VITALS: BP 148/64
[2019-12-27 20:00] VITALS: BP 135/86
[2019-12-28 04:46] VITALS: BP 129/87
[2019-12-28 07:15] VITALS: BP 124/92
--- NOTE | 2019-12-28 07:33 | NUR ---
PATIENT A/O X 4.DENIES PAIN.ON 02 5.5 L NC.MONITOR SHOWS SINUS RHYTHM,SINUS TACHY.ABLE TO TAKE PILLS WITH PUDDING PER HIS REQUEST.BEDTIME BLOOD SUGAR IS 330.SSI GIVEN.POC CONTINUED.
[2019-12-28 16:20] VITALS: BP 131/82
--- NOTE | 2019-12-28 17:57 | NUR ---
ASSUMED CARE AT SHIFT CHANGE, ALERT AND ORIENTED. SR-ST AND OTHER VSS. UP IN THE CHAIR FOR LUNCH, AND DINNER. PROGRESSING TOWARDS GOALS, AND WILL CONTINUE WITH POC.
[2019-12-28 20:30] VITALS: BP 137/82
[2019-12-29 04:37] VITALS: BP 134/86
[2019-12-29 07:30] VITALS: BP 132/94
[2019-12-29 15:45] VITALS: BP 118/62
[2019-12-29 19:46] VITALS: BP 118/63
[2019-12-30 04:29] VITALS: BP 109/69
[2019-12-30 06:20] LABS: CALCIUM 8.9 mg/dL (8.5-10.1); CREATININE 1.7 mg/dL (0.7-1.3); POTASSIUM 4.5 mmol/L (3.5-5.1)
[2019-12-30 06:32] LABS: HEMATOCRIT 39.5 % (42.0-52.0); HEMOGLOBIN 12.5 gm/dL (14.0-18.0); MCH 29.4 pg (26.0-34.0); MCHC 31.8 g/dL (28.0-37.0); MCV 92.5 fL (80.0-100.0); RBC 4.26 mil/uL (4.50-6.00); RDW 15.7 % (10.5-14.5); WBC 11.3 thou/uL (4.0-11.0)
[2019-12-30 07:35] VITALS: BP 113/61
--- NOTE | 2019-12-30 08:38 | NUR ---
PATIENT INCREASED O2 NEEDS THIS AM FROM 5L TO 7L PER RT.PATIENT ASK WHAT TIME IS HE GOING TO REHAB TODAY.MONITOR SHOWS [facility] CONTINUED.
--- NOTE | 2019-12-30 13:04 | NUR ---
Herlinda valdez and patient accepted. They are in process of authorization. [facility] dtr. Patient will need wc for home. ramp is built on home. Oxygen has been transferred to home.
[2019-12-30 15:15] VITALS: BP 92/42
--- NOTE | 2019-12-30 15:47 | NUR ---
ASSESSMENT DOCUMENTED, SOB AND ST WITH ACTIVITIES.VSS AND SA/ST. PROGRESSING WELL, AND WILL CONTINUE WITH POC.
--- NOTE | 2019-12-30 16:59 | NUR ---
FAXED REFERRAL TO [facility] SPOKE WITH JIM IN INTAKE AT THE [facility] LOC[facility] THEY CANNOT ACCEPT DUE TO STAFFING ISSUES. DP TO FOLLOW.
[2019-12-30 20:45] VITALS: BP 129/79
[2019-12-31 05:23] VITALS: BP 112/61
[2019-12-31 07:30] VITALS: BP 94/57
--- NOTE | 2019-12-31 08:10 | NUR ---
ASSESSMENTS CHARTED, MEDS GIVEN PATIENT IS MED SURG, NOT ON TELE. RESTING IN BED DURING SHIFT. UP WITH ASSIST TO BEDSIDE COMMODE. PLAN OF CARE TO TRANSFER TO [address] [place] [address].
--- NOTE | 2019-12-31 12:22 | NUR ---
CALL RECEVIED THIS AFTERNOON FROM [facility] REGARDING REQUEST FOR REHAB PRE-AUTHORIZATION. [facility] HAS DENIED REHAB STAY STATING "REQUEST LACKS SUPPORT FOR INPATIENT REHAB." PEER TO PEER CAN BE ARRANGED BY CALLING . THIS MUST BE COMPLETED BY 01/03/20 AT 11:00 DAIRY FARMER. COUNTER TOP ASSEMBLER INFORMED AND WILL NOTIFY ATTENDING PHYSICIAN. THANK YOU FOR THIS REFERRAL.
--- NOTE | 2019-12-31 13:34 | NUR ---
Patient denied 5N acute rehab. [facility] reports care concerns. Also they did not accomadate heart healthy diet. Alerted most facilities will not accomadate a restricted diet. Dtr reviewing post acute list for skilled care.
[2019-12-31 15:45] VITALS: BP 108/78
--- NOTE | 2019-12-31 16:32 | NUR ---
FAXED REFERRAL TO [facility] SPOKE WITH PAULA IN ADM SHE RECEIVED RFERRAL AND WILL REVIEW. PT WILL NEED VITAL STIM WITH SPEECH AND A HEART HEALTHY DIET NOTIFIED FACILITY OF THIS. DP TO FOLLOW
--- NOTE | 2019-12-31 16:48 | NUR ---
Reviewed with dtr and patient [employer] post acute care. referral to [facility] who has vital stem therapy. [facility] does not have vital stem, Patient and dtr do not want to return to [facility].
--- NOTE | 2019-12-31 17:23 | NUR ---
PT CARE ASSUMED APPROX 0700. ASSESSMENT CHARTED. DENIES PAIN AND SOA. VSS. REFUSES TO GET TO CHAIR EVEN AFTER ENCOURAGEMENT. REHAB TRANSFER DELAYED AT THIS TIME. PT TOLERATING POC. NO DISTRESS NOTED.
[2019-12-31 20:28] VITALS: BP 111/62
--- NOTE | 2020-01-01 04:57 | NUR ---
PATIENTS CARE WAS ASSUMED AT SHIFT CHANGE. PATIENT WAS ASSESSED. PATIENT IS INCONTENENT. EXTERNAL CATH IN PLACE. HOURLY ROUNDS WERE DONE. THE BED IS IN A LOW AND LOCKED POSITION. THE BED ALARM IS ON
[2020-01-01 05:47] VITALS: BP 132/88
[2020-01-01 07:30] VITALS: BP 108/67
--- NOTE | 2020-01-01 11:49 | NUR ---
ASSUMED CARE AT 0700, SHIFT ASSESSMENT DONE, MEDS GIVEN, VSS. REMAINS ON HIGH FLOW NASAL CANULA, 5L, TOLERATING WELL. M/S NOW. USES THE URINAL, ACHS AND COEVERAGE PER SLIDING SCALE. WILL CONTINUE TO ASSESS AND ASSIST WITH ADLs NEEDED.
[2020-01-01 14:07] LABS: CREATININE 1.6 mg/dL (0.7-1.3); MAGNESIUM 2.4 mg/dL (1.8-2.4); POTASSIUM 4.2 mmol/L (3.5-5.1)
--- NOTE | 2020-01-01 17:27 | NUR ---
FAXED REFERRAL TO [facility] SPOKE WITH CHENG IN ADM SHE RECEIVED REFERRAL AND WILL REVIEW. DP TO FOLLOW.
--- NOTE | 2020-01-01 18:16 | NUR ---
rec call from [facility] that [facility] is not in network. Updated dtr. Referral to [facility] for review.
--- NOTE | 2020-01-01 18:41 | NUR ---
PT ARRIVED FROM 2N CCU. PT IS AOX4, VSS, NO C/O PAIN AT THIS TIME. PT IS ON 02 4L NC. FALL PRECAUTIONS IN PLACE. CALL LIGHT/PERSONAL ITEMS IN REACH. WILL MONITOR PT.
[2020-01-01 20:43] VITALS: BP 119/86
[2020-01-02 00:06] LABS: GLYCOHEMOGLOBIN (HGB A1C) 7.7 % (4.8-5.6)
--- NOTE | 2020-01-02 04:43 | NUR ---
Assumed pt care at 1900. A/OX4,VSS. Denies pain on assessment. Pt has been in bed throughout the shift voiding per urinal.Oxgen on at 4L/NC (High flow),does have dyspnea on exertion. Fall precautions in place, calls approp. Resting w/o any distress noted will continue to monitor pt.
[2020-01-02 05:58] LABS: HEMATOCRIT 42.1 % (42.0-52.0); HEMOGLOBIN 13.6 gm/dL (14.0-18.0); MCH 29.6 pg (26.0-34.0); MCHC 32.3 g/dL (28.0-37.0); MCV 91.8 fL (80.0-100.0); PLATELET COUNT 320 thou/uL (150-400); RBC 4.58 mil/uL (4.50-6.00); RDW 15.6 % (10.5-14.5); WBC 12.3 thou/uL (4.0-11.0)
[2020-01-02 06:46] LABS: CALCIUM 8.8 mg/dL (8.5-10.1); CREATININE 1.4 mg/dL (0.7-1.3); MAGNESIUM 2.5 mg/dL (1.8-2.4); PHOSPHORUS 4.2 mg/dL (2.5-4.9); POTASSIUM 3.7 mmol/L (3.5-5.1)
[2020-01-02 07:28] VITALS: BP 132/92
[2020-01-02 08:44] LABS: ABSOLUTE NEUTROPHILS 9.1 thou/uL (1.4-8.2); PLATELET ESTIMATE NORMAL
--- NOTE | 2020-01-02 14:21 | NUR ---
PAUL reviewed chart and spoke with nursing and attending physician. Pt was [facility] to [facility] from and is progressing towards goals for discharge. SW notified that [facility] does not have vital stim available at this time. PAUL notified that [facility] is able to use pt's out of network benefits and they can submit for insurance authorization. PAUL discussed with pt's dtr, Tomasa. Tomasa is agreeable with [facility]. PAUL updated [facility] post acute liaison. Clinical and therapy updates faxed to [facility] for review. Pt was not seen by therapy yesterday. PAUL is following to assist as needed with discharge planning.
[2020-01-02 15:11] VITALS: BP 133/84
--- NOTE | 2020-01-02 15:13 | NUR ---
Nutrition: pt admit with COPD exacerbation. Seen due to LOS. Stable weights. Dysphagia on modified liquids, swallow precautions. hx noncompliance with thickened liquids per chart. BG 245-386 with hx of DM and exacerbated with steroids. Lantus added. Will add carb controlled to diet order. pt eats well 75-100% of meals. CM working on placement. Low nutrition risk.
[2020-01-02 15:37] VITALS: BP 133/84
--- NOTE | 2020-01-02 15:48 | NUR ---
ASSUMED CARE OF PT AT 0700. PT IS AOX4, VSS, ON 4L O2 PER NC. PT WAS INCREASED TO 5L O2 WHILE WORKING WITH PHYSICAL THERAPY D/T EXCERTION. CURRENTLY RESTING IN BED. BS ARE CHECKED BEFORE MEALS, INSULIN PROVIDED PER S/S ORDER. FALL PRECAUTIONS IN PLACE. IV ON LEFT FA S/L. WILL CONTINUE TO MONITOR PT.
[2020-01-02 22:25] VITALS: BP 123/82
--- NOTE | 2020-01-03 03:29 | NUR ---
GIVEN PER MAR. PATIENT IS ALERT BUT SLEEPY, ORIENTED X4. REPORTED TO BE FORGETFUL AT TIMES. PATIENT IS CURRENTLY ON CONTINUOUS PULSE OX. MONITORING AND IS ON 4L OF 02. PATIENT IS SATURATING AT LOW TO MID 90'S. PATIENT DENIES PAIN OR ANY NEEDS AND WOULD LIKE TO REST "HE IS TIRED". PATIENT IS A MAX ASSIST AND HAS NOT GOTTEN UP THIS PM. PATIENT CALLS OUT FOR URINAL. VITAL SIGNS ARE STABLE; PATIENT HAS BEEN AWAITING AUTH. FROM INS. TO D/C TO VARIOUS FACILITIES BUT HAS GOTTEN DENIED. PLAN IS TO WAIT FOR AUTH. TO D/C TO [facility]. PATIENT DENIES ANY NEEDS AT THIS TIMES. FALL PRECAUTIONS IN PLACE. WILL CONTINUE TO MONITOR AND FOLLOW PLAM OF CARE
[2020-01-03 07:51] VITALS: BP 129/87
[2020-01-03] MEDS ORDERED: AUGMENTIN 875-1 EACH PO (14:22)
[2020-01-03] MEDS ORDERED: TOPROL XL50 MG PO (14:25)
--- NOTE | 2020-01-03 15:40 | NUR ---
DISCHARGE ORDERS COMPLETED AND FAXED TO [facility] ADMISSIONS. TRANSPORTATION ARRANGED PER PAULA, 1600 HOURS. PATIENT AND FAMILY NOTIFIED AT BEDSIDE. CHART COPY COMPLETED PER CUSTOMER OPERATIONS INTERN. UNIT RN NOTIFIED, CONTACT NUMBER FOR REPORT PROVIDED. [phone] UNIT SW AWARE.
--- NOTE | 2020-01-03 15:55 | NUR ---
DISCHARGE NOTE: SW reviewed chart and spoke with nursing and attending physician. Pt is medically stable for discharge to [facility] today. SW notified that insurance has provided authorization. Wheelchair van transportation scheduled for [phone] per facility's arrangements. PAUL met with pt and dtr at bedside to provide update. Both are agreeable with discharge. exercise planner faxed orders/summary to the facility. DA-124 C form completed and faxed. Chart copy requested. Nursing to call report. No additional SW needs identified at this time, but is available to assist should needs arise.
--- NOTE | 2020-01-03 16:50 | NUR ---
ASSUMED CARE OF PT AT 0700. PT ALERT AND ORIENTED, MILD DYSPNEA W/ ACTIVITY. ON 4LNC AT REST, 6L W/ ACTIVITY. UP W/ 1 ASSIST TO CHAIR. SUGARS HIGH, TREATED ACCORDING TO SLIDING SCALE. DISCHARGED TO [facility]. REPORT CALLED TO RECEIVING NURSEJENNIFER.
== END 2020-01-03 17:01 | DRG 177 ==
LOC: ER 14:24 → 2N 17:22 → EROBS 17:22 → 2N 12-26 13:04 → ENTRNSPT 01-01 18:09 → 4N 01-01 18:36
PROVIDERS: Emergency Medicine Emergency Medical Services; Internal Medicine; Internal Medicine Pulmonary Disease; Nurse Practitioner; ADMIT Internal Medicine
DX: J69.0 Pneumonitis due to inhalation of food and vomit (principal); J96.22 Acute and chronic respiratory failure with hypercapnia; I50.33 Acute on chronic diastolic (congestive) heart failure; J96.21 Acute and chronic respiratory failure with hypoxia; I13.0 Hypertensive heart and chronic kidney disease with heart failure and stage 1 through stage 4 chronic kidney disease, or unspecified chronic kidney disease; N17.9 Acute kidney failure, unspecified; J44.1 Chronic obstructive pulmonary disease with (acute) exacerbation; J44.0 Chronic obstructive pulmonary disease with (acute) lower respiratory infection; E78.5 Hyperlipidemia, unspecified; I25.10 Atherosclerotic heart disease of native coronary artery without angina pectoris; N40.0 Benign prostatic hyperplasia without lower urinary tract symptoms; E11.22 Type 2 diabetes mellitus with diabetic chronic kidney disease; J84.10 Pulmonary fibrosis, unspecified; I48.0 Paroxysmal atrial fibrillation; E66.01 Morbid (severe) obesity due to excess calories; R13.10 Dysphagia, unspecified; E83.42 Hypomagnesemia; Z66 Do not resuscitate; I27.20 Pulmonary hypertension, unspecified; N18.3 Chronic kidney disease, stage 3 (moderate); D63.8 Anemia in other chronic diseases classified elsewhere; Z99.81 Dependence on supplemental oxygen; Z95.5 Presence of coronary angioplasty implant and graft; Z79.82 Long term (current) use of aspirin; Z79.891 Long term (current) use of opiate analgesic; Z79.899 Other long term (current) drug therapy; Z88.8 Allergy status to other drugs, medicaments and biological substances; Z68.30 Body mass index [BMI] 30.0-30.9, adult; Z79.01 Long term (current) use of anticoagulants; Z87.891 Personal history of nicotine dependence
CPT/HCPCS: 10081; 10790; 10797

== ENCOUNTER 2020-01-10 20:00 | Inpatient (IN) | payer OTHER ==
[~2020-01-10] VITALS: Ht 188 cm; Wt 98.0 kg
--- NOTE | ~2020-01-10 | HC ---
[facility] [place] [address] CONSULTATION Name: HUA BALDERAS Room #: 217-P ADM IN M.R.#: [id number] Admission: 01/10/20 Attend Phys: Wild Sarah MD Discharge: Date of : 39 Report #: [id number] THIS REPORT FOR: cc: Octavio Vega James D. DO Al-Absi, Ahmed I. MD ~ CC: Octavio Sarah DATE OF SERVICE: 02/09/2020 HISTORY OF PRESENT ILLNESS: This is obtained from the medical chart as the patient currently is maintained on CPAP and not able to provide me with history. He is well known to me from previous admissions. He is an 79-year-old who I evaluated for an acute kidney injury few weeks ago and his creatinine was actually down to 1.4. The patient was readmitted couple of weeks ago. He is an advanced COPD who is maintained on 6 liters oxygen. He lives in [facility]. His daughter wanted him to be transferred to our facility because of low blood pressure. On presentation, the patient was found to have sodium of 162, potassium of 5.3, BUN of 163, creatinine of 6.0. I was consulted to manage his renal issues. As stated above, the patient was evaluated back in November for a similar presentation. Unfortunately, the patient goes into episodes of over diuresis and under diuresis. PAST MEDICAL HISTORY: 1. Pulmonary fibrosis. 2. COPD. 3. Diabetes mellitus. 4. Pulmonary hypertension. 5. Repeated episodes of acute kidney injury. 6. Coronary artery disease. SOCIAL HISTORY: Resides in a nursing facility. No reported drug or alcohol abuse. MEDICATIONS: 1. Eliquis. 2. Atorvastatin. 3. Torsemide. 4. Flomax. 5. Lisinopril. 6. Prednisone. 7. Metoprolol. 8. Trazodone. REVIEW OF SYSTEMS: Unobtainable given the fact that the patient is currently [facility] [address] [place] [address] CONSULTATION Name: HUA BALDERAS Room #: 217-P [facility].#: [id number] Admission: 01/10/20 Attend Phys: Wild Sarah MD Discharge: Date of : 39 Report #: [id number] maintained on CPAP. ALLERGIES: None. PHYSICAL EXAMINATION: GENERAL: He is lethargic. VITAL SIGNS: Blood pressure is 111/89. HEAD AND NECK: No jugular venous distention. CHEST: No crackles. CARDIOVASCULAR: No rub detected. ABDOMEN: Soft. EXTREMITIES: Lower extremities, no edema. SKIN: Very dry mucous membranes and tenting of the skin is present. LABORATORY VALUES: Reviewed. Sodium is 162. Potassium 5.3. BUN is 163. Creatinine is 6. ASSESSMENT, IMPRESSION AND PLAN: 1. Acute kidney injury. 2. Hypernatremia. 3. Hyperkalemia. 4. Severe pulmonary fibrosis and terminal chronic obstructive pulmonary disease. 5. Recurrent issues. Unfortunately, the patient is not a good candidate for any long-term diuresis. His major issues of his lungs are related to his pulmonary fibrosis. He now has yet another episode of acute kidney injury due to poor oral intake while on diuretics. 6. Discontinue current IV fluid. 7. Initiate D5W. 8. No code status. 9. Primary team is managing his ongoing lung issues. 10. Recurrent admissions over the last few months with rapid deterioration of his overall condition. Long-term care plans should be discussed with the family members. By: [id number] Bryant Fraga MD /nt
[~2020-01-10 20:00] MED LIST changes: +ELIQUIS5 MG PO; +TOPROL XL50 MG PO
[2020-01-10 20:01] VITALS: BP 127/72
[2020-01-10 21:08] LABS: BE(vivo) 3.4 mmol/L (-2 to +3); HCO3 28.2 mmol/L (22.0-26.0); PCO2 43.5 mmHg (35.0-45.0); PO2 144.6 mmHg (80.0-100.0); sO2 98.9 % (92.0-98.0)
[2020-01-10 21:24] LABS: HEMATOCRIT 49.2 % (42.0-52.0); HEMOGLOBIN 15.2 gm/dL (14.0-18.0); MCH 29.2 pg (26.0-34.0); MCV 94.4 fL (80.0-100.0); PLATELET COUNT 157 thou/uL (150-400); RBC 5.22 mil/uL (4.50-6.00); RDW 16.6 % (10.5-14.5); WBC 13.6 thou/uL (4.0-11.0)
[2020-01-10 21:38] LABS: INR 1.4; PROTIME 14.2 Seconds (9.3-11.4)
[2020-01-10 21:41] LABS: CALCIUM 9.4 mg/dL (8.5-10.1); TROPONIN-I 0.28 ng/mL (<0.06)
[2020-01-10 21:44] LABS: POTASSIUM 6.3 mmol/L (3.5-5.1)
[2020-01-10 22:06] LABS: ABSOLUTE NEUTROPHILS 10.3 thou/uL (1.4-8.2); ANISOCYTOSIS 1+; LARGE PLATELETS OCCASIONAL; NUCLEATED RBCS 1 /100WBC; POLYCHROMASIA OCCASIONAL
[2020-01-10 23:02] VITALS: BP 119/59
[2020-01-10] MEDS ORDERED: HUMALOG100 UNIT/1 SUBQ (23:52)
[2020-01-10] MEDS ORDERED: LANTUS SUBQ (23:53)
[2020-01-10] MEDS ORDERED: TRELEGY ELLIPT1 EACH INH (23:56)
[2020-01-11 00:30] VITALS: BP 111/89
[2020-01-11 03:03] LABS: HEMATOCRIT 48.8 % (42.0-52.0); HEMOGLOBIN 14.7 gm/dL (14.0-18.0); MCH 29.1 pg (26.0-34.0); MCHC 30.2 g/dL (28.0-37.0); MCV 96.4 fL (80.0-100.0); RBC 5.06 mil/uL (4.50-6.00); RDW 16.8 % (10.5-14.5); WBC 14.1 thou/uL (4.0-11.0)
[2020-01-11 05:30] VITALS: BP 123/75
[2020-01-11 05:42] LABS: CALCIUM 8.9 mg/dL (8.5-10.1); POTASSIUM 5.3 mmol/L (3.5-5.1)
[2020-01-11 06:41] LABS: URINE BILIRUBIN NEGATIVE (Negative); URINE BLOOD NEGATIVE (Negative); URINE CLARITY CLEAR; URINE COLOR YELLOW; URINE GLUCOSE-RANDOM* NEGATIVE (Negative); URINE KETONES NEGATIVE (Negative); URINE LEUKOCYTES-REFLEX NEGATIVE (Negative); URINE NITRITE-REFLEX NEGATIVE (Negative); URINE PROTEIN (DIPSTICK) NEGATIVE (Negative); URINE SPECIFIC GRAVITY 1.025 (1.005-1.035); URINE UROBILINOGEN 0.2 E.U./dl (0.2-1.0)
[2020-01-11 06:53] LABS: TROPONIN-I 0.26 ng/mL (<0.06)
--- NOTE | 2020-01-11 07:36 | NUR ---
PT ADMITTED FROM ED WITH HYPERKALEMIA AMD RESP FAILURE,ARRIVED TO UNIT VIA CART ACCOMPANIED BY THE SON.PT ALERT TO SELF.PLACED ON BIPAP UPON ARRIVAL TO UNIT.VSS.ABNORMAL LABS NOTED THAT ARE GETTING ADDRESSED.CONSULTED SPECIAL PROCEDURES TECHNOLOGIST.IVF'S INFUSING PER ORDERS.CRITICAL LABS REPORTED TO AUTOMOTIVE FUEL SYSTEMS CONVERTER,SEE ORDERS.ASSESSMENT COMPLETED DOCUMENTED.PT DENIES PAIN OR ANY DISTRESS AT THIS TIME.WILL CONT TO MONITOR ELECTRLOYTES.
[2020-01-11 08:15] VITALS: BP 98/57
[2020-01-11 10:41] LABS: CALCIUM 8.8 mg/dL (8.5-10.1); CREATININE 5.5 mg/dL (0.7-1.3)
[2020-01-11 11:00] LABS: POTASSIUM 6.1 mmol/L (3.5-5.1)
[2020-01-11 11:39] VITALS: BP 90/53
--- NOTE | 2020-01-11 12:53 | EKG ---
[facility] [address] ELECTROCARDIOGRAM REPORT Name: HUA BALDERAS Room #: 217-P ADM IN M.R.#: [id number] Admission: 01/10/20 Attend Phys: Wild Sarah MD Discharge: Date of : 39 Report #: [id number] THIS REPORT FOR: cc: Octavio Vega James D. DO Park, Jin S. MD ~ THIS REPORT FOR: //name// [facility] ED Test Date: 2020-01-10 Test Time: 20:13:30 Pat Name: HUA BALDERAS Department: Room: [facility] Gender: M Escapement Matcher: MPARK : 1940 Requested By: Bria Cabrera Order Number: [id number] MD: Zurdo Wilhelm Measurements Intervals [place] Rate: 98 P: IL: QRS: 28 QRSD: 137 T: -1 QT: 363 QTc: 464 Interpretive Statements Atrial flutter with predominant 3:1 AV block Right bundle branch block Compared to ECG 12/25/2019 14:50:12 AV block, advanced (high-grade) now present Electronically Signed On 01-11-2020 12:52:28 PHOTO FINISHER by Zurdo Wilhelm [email or web address] <ELECTRONICALLY SIGNED> By: Zurdo Wilhelm MD 01/11/20 1252 12 12 Zurdo Wilhelm MD /EPI
[2020-01-11 16:00] VITALS: BP 105/74
--- NOTE | 2020-01-11 19:17 | NUR ---
ASSUMMED PT CARE AT APPROXIMATELY 0700. PT AWAKE AND NOT RESPONSIVE VERBALLY. PT RESPONDING BY NODDING AND SHRUGGING SHOULDERS. PT FOLLOWS VERBAL COMMANDS. AT BEGINNING OF SHIFT PT BECAME TACHYPNIC C RESPIRATORY RATES IN THE 40'S-60'S C LABORED BREATHING. NOTIFIED DR. WINTERS. ASKED DR. WINTERS IF PT COULD HAVE ANXIETY AND/OR PAIN MEDICATION. DR. WINTERS STATED SHE DID NOT FEEL COMFORTABLE TO ORDER THOSE MEDS AT THAT TIME AND TO ASK DR. DUPONT. DR. DUPONT ORDERED PAIN/ANXIETY MEDS. IMPLEMENTED MEDS. PT COMFORTABLE IN BED C RESPIRATORY RATES IN 15'S-20'S. DR. DUPONT SPOKE C FAMILY AND FAMILY AGREED TO SET UP HOSPICE CARE ON MONDAY. DR. DUPONT GAVE VERBAL ORDER THAT PT COULD TRY AND EAT IF PT'S RESPIRATORY RATE IS <30 AND O2 SAT IS 88-90%. PT DENIED WANTING TO TRY AND HAVE PT EAT SINCE PT WAS COMFORTABLE. VITAL SIGNS STABLE. BLOOD SUGARS STABLE.
[2020-01-11 21:35] VITALS: BP 107/67
[2020-01-12] VITALS (9 sets, daily range): BP systolic 101–141; BP diastolic 70–91
[2020-01-12 04:25] LABS: HEMATOCRIT 40.2 % (42.0-52.0); HEMOGLOBIN 12.6 gm/dL (14.0-18.0); MCH 29.7 pg (26.0-34.0); MCHC 31.3 g/dL (28.0-37.0); MCV 94.9 fL (80.0-100.0); RBC 4.24 mil/uL (4.50-6.00); RDW 16.4 % (10.5-14.5); WBC 9.6 thou/uL (4.0-11.0)
[2020-01-12 04:42] LABS: ALBUMIN 2.6 g/dL (3.4-5.0); CALCIUM 7.8 mg/dL (8.5-10.1); CREATININE 4.7 mg/dL (0.7-1.3); POTASSIUM 5.9 mmol/L (3.5-5.1)
--- NOTE | 2020-01-12 05:08 | NUR ---
ASESSMENT DOCUMENTED.PT BEEN RESTING IN NO ACUTE DISTRESS,FAMILY AT BEDSIDE.PT ALERT,FOLLOWS SIMPLE COMMANDS,RESPONDS VIA GESTURES,NOT VERBALLLY RESPONSIVE.ON BIPAP AT 50%.SPO2 AT 96% AT THIS TIME.MORPHINE 2MG GIVEN WITH EPISODES OF DYSPNEA AND RESTLESSNESS AND SEEMS TO BE EFFECTIVE.FAMILY REQUESTED TO LET PATIENT REST W/O INTERRUPTIONS,WAIT FOR THEM TO CALL WITH NEEDS.IVF.POC IS TO CONT TO MONITOR PER POC.
[2020-01-12 13:08] LABS: CREATININE 4.5 mg/dL (0.7-1.3)
[2020-01-12 13:12] LABS: POTASSIUM 4.7 mmol/L (3.5-5.1)
--- NOTE | 2020-01-12 13:16 | EKG ---
[facility] [place] [address] ELECTROCARDIOGRAM REPORT Name: HUA BALDERAS Room #: 217- ADM IN M.R.#: [id number] Admission: 01/10/20 Attend Phys: Wild Sarah MD Discharge: Date of : 38 Report #: [id number] THIS REPORT FOR: cc: Octavio Vega James D. DO Couchonnal, Luis F. MD ~ THIS REPORT FOR: //name// [facility] Test Date: 2020-01-12 Test Time: 08:23:19 Pat Name: HUA BALDERAS Department: Room: 217 Gender: M Channel Cementer Outsole Machine: ELANA : 1940 Requested By: Cesar Gardiner Order Number: [id number] MD: Grady Galvan Measurements Intervals [place] Rate: 131 P: [place]: QRS: 80 QRSD: 129 T: -14 QT: 329 QTc: 486 Interpretive Statements Atrial flutter Right bundle branch block Compared to ECG 01/10/2020 20:13:30 AV block, advanced (high-grade) no longer present Electronically Signed On 01-12-2020 13:15:08 GAS REVERSER by Grady Galvan [email or web address] <ELECTRONICALLY SIGNED> By: Grady Galvan MD 01/12/20 1315 2 2 Grady Galvan MD /EPI
--- NOTE | 2020-01-12 20:31 | NUR ---
ASSUMMED PT CARE AT APPROXIMATELY 0700. PT AWAKE AND NOT VERBALLY RESPONSIVE. PT WILL RESPOND TO VERBAL COMMANDS. ASSESSMENT CHARTED. FALL PRECAUTIONS IN PLACE. BLOOD SUGARS STABLE. PT HR ELEVATED SUSTAINED DURING MID-DAY. NOTIFIED DR. CHRISTIANSON. DR. CHRISTIANSON ORDERED CARDIZEM DRIP. CARDIZEM DRIP IMPLEMENTED. VITAL SIGNS STABLE. NOTIFIED DR. CHRISTIANSON OF PT'S UPDATED LABS. DR. CHRISTIANSON STATED UNDERSTANDING AND STATED NO NEW ORDERS. PT DID APPEAR UNCOMFORTABLE/IN PAIN AT TIMES. PT'S RESPIRATORY RATE WOULD INCREASE TO 40'S-50'S C LABORED BREATHING. PT RECIEVED ANALGESICS. PT'S OBSERVED UNCOMFORTABLENESS WOULD DECREASE AND PT'S RESPIRATORY RATE WOULD RESUME STABLE. PT COMFORTABLE IN BED.
[2020-01-13 04:45] VITALS: BP 127/75
[2020-01-13 05:52] LABS: ALBUMIN 2.7 g/dL (3.4-5.0); CALCIUM 8.1 mg/dL (8.5-10.1); PHOSPHORUS 5.8 mg/dL (2.5-4.9); POTASSIUM 4.8 mmol/L (3.5-5.1)
[2020-01-13 05:59] LABS: CREATININE 3.3 mg/dL (0.7-1.3)
[2020-01-13 08:30] VITALS: BP 117/77
--- NOTE | 2020-01-13 08:52 | NUR ---
SPOKE TO RN, FAMILY, AND PATIENT THIS MORNING AND REVIEWED CHART. FAMILY AND PATIENT DECIDED TO CANCEL OT EVAL ORDERS AT THIS TIME. IF PATIENT'S MEDICAL STATUS CHANGES AND PATIENT WANTS THERAPY VERSUS HOSPICE, OT ORDERS CAN BE REINIETIATED AT THAT TIME.
[2020-01-13] MEDS ORDERED: IPRAT-ALBUT 0.5-3 ML INH ×2 (12:26)
[2020-01-13] MEDS ORDERED: OLANZAPINE ODT5 MG SUBLING (12:26)
[2020-01-13] MEDS ORDERED: LORAZEPAM I2 MG/1 ML PO (12:26)
[2020-01-13] MEDS ORDERED: MSL20MG/ML SUBLING (12:26)
--- NOTE | 2020-01-13 16:26 | NUR ---
FAXED REFERRAL TO [facility] SPOKE WITH DARIEL IN INTAKE SHE RECEIVED REFERRAL AND WILL ACCEPT PT. DP TO FOLLOW.
--- NOTE | 2020-01-13 16:58 | NUR ---
Spoke with dtr, son, grandtr and patient regarding hospice services. patient reports he wants to dc home to dtrs home in [facility]. Approx [place] miles. Spoke with Sw at [facility] who reports [facility] services area and they have wonderful care. Sp wit Melisa Joseph and faxed referral. Jake to have phone intake with dtr. Faxed PCS form and sp with Yolanda in Business office. She reports insurance likely cover transport cost to family could be $1480 its $10 per mile. Updated family who is in agreement with plan they sp with [facility]. [facility] to finalize plans in am. Outside DNR in room family plans to sign.
--- NOTE | 2020-01-13 20:12 | NUR ---
ASSUMMED PT CARE AT APPROXIMATELY 0700. PT A&O X4. ASSESSMENT CHARTED. FALL PRECAUTIONS IN PLACE. PT DENIES HAVING CHEST PAIN. PT DOES HAVE SOB. PT O2 SAT STABLE. PT STATED HE HAD PAIN. PT RECIEVED ANALGESICS. PT STATED ANALGESICS HELPED RELIEVE PAIN. SPOKE C FAMILY AND CONFIRMED TO PROCEED C SETTING UP HOSPICE CARE AND COMFORT CARE. PT REMOVED OFF BIPAP. PT O2 SATS STABLE C PT ON NASAL CANNULA. DR. LEBLANC STATED PER COMFORT CARE TO DC BLOOD SUGAR CHECKS AND TO COMPLETE VITAL SIGNS Q SHIFT. ORDERS IMPLEMENTED. PT COMFORTABLE IN BED. PT DENIES WANTING FOOD. PT WILL DRINK FLUIDS OCCASIONALLY. PT DENIES HAVING FURTHER CONCERNS. EDUCATED PT AND PT'S FAMILY ABOUT POC. PT AND PT'S FAMILY STATED UNDERSTANDING AND DENIED HAVING FURTHER CONCERNS.
--- NOTE | 2020-01-14 07:38 | NUR ---
PATIENT'S FAMILY IS IN THE ROOM WITH THE PATIENT.MORPHINE IV GIVEN FOR COMFORT.REFUSED BP LAST NIGHT.O2 5L NC.MONITOR SHOWS TACHY.POC CONTINUED.
[2020-01-14 11:43] VITALS: BP 117/77
--- NOTE | 2020-01-14 14:10 | NUR ---
PT CARE ASSUMED APPROX 0700. ASSESSMENT CHARTED. PT COMFORT MEASURES AND MEDS APPEAR TO BE ADEQUATE FOR COMFORT. FAMILY AT BEDSIDE AND REQUESTING REPOSITIONING PT WANTS. REFUSING VITAL SIGNS. PT DISCHARGING THIS SHIFT HOME WITH HOSPICE. FAMILY AT BEDSIDE TO RIDE HOME WITH PT. EDUCATION DONE WITH FAMILY REGARDING POST HOSPITAL CARE. CASE MANAGEMENT AT BEDSIDE THIS SHIFT TO ANSWER ALL QUESTIONS. FAMILY DENIES QUESTIONS AT THIS TIME. IVs OUT, TELE BOX OFF. NO DISTRESS NOTED. PT TO TRANSPORT HOME WITH [employer] APPROX 1400. WILL MONITOR UNTIL THEN.
--- NOTE | 2020-01-14 14:34 | NUR ---
PT HAS LEFT UNIT. FAMILY FOLLOWING.
--- NOTE | 2020-01-14 17:27 | NUR ---
patient to dc to dtrs home in [facility]. Sp with Jake at [facility] who reports they rec faxed orders and agreeable for start of care at home. [facility] for 1400 notfied [facility] at time patient left hospital. Family at bedside outside DNR signed and and chart copy made. Orders to dc to home with hospice.
== END 2020-01-14 14:34 | disposition hospice, home (50) | DRG 682 ==
LOC: ER 20:00 → 2N 22:11 → EROBS 22:11 → 2N 01-11 02:15
PROVIDERS: Emergency Medicine Emergency Medical Services; Hospitalist; Internal Medicine; Nurse Practitioner Family; ADMIT Internal Medicine
PROC: 5A09457 Assistance with Respiratory Ventilation, 24-96 Consecutive Hours, Continuous Positive Airway Pressure (ICD-10-PCS; principal; 2020-01-11)
DX: N17.9 Acute kidney failure, unspecified (principal); J96.22 Acute and chronic respiratory failure with hypercapnia; G93.41 Metabolic encephalopathy; J96.21 Acute and chronic respiratory failure with hypoxia; I50.33 Acute on chronic diastolic (congestive) heart failure; E87.0 Hyperosmolality and hypernatremia; I13.0 Hypertensive heart and chronic kidney disease with heart failure and stage 1 through stage 4 chronic kidney disease, or unspecified chronic kidney disease; J43.9 Emphysema, unspecified; I48.91 Unspecified atrial fibrillation; E78.5 Hyperlipidemia, unspecified; I25.10 Atherosclerotic heart disease of native coronary artery without angina pectoris; I27.20 Pulmonary hypertension, unspecified; E87.5 Hyperkalemia; J84.10 Pulmonary fibrosis, unspecified; E11.22 Type 2 diabetes mellitus with diabetic chronic kidney disease; N18.9 Chronic kidney disease, unspecified; E66.01 Morbid (severe) obesity due to excess calories; E86.0 Dehydration; Z66 Do not resuscitate; Z79.01 Long term (current) use of anticoagulants; Z99.81 Dependence on supplemental oxygen; Z95.5 Presence of coronary angioplasty implant and graft; Z68.27 Body mass index [BMI] 27.0-27.9, adult; Z79.899 Other long term (current) drug therapy; Z79.82 Long term (current) use of aspirin; Z88.5 Allergy status to narcotic agent
CPT/HCPCS: 10081